=== PATIENT | male | born 1980 | race Caucasian/White ===

== ENCOUNTER 2020-09-22 17:15 | Emergency (ER) | payer BC, SELFPAY ==
[2020-09-22 17:17] VITALS: BP 124/81; PULSE 75; RESP 16; TEMP 36.8; O2SAT 97; BMI 27.8
--- NOTE | 2020-09-22 17:21 | HMH.EDGENADL ---
ED Disposition Clinical Impression: Musculoskeletal chest pain Disposition: Home, Self-Care Condition on Discharge: Good Instructions: DI for Atypical Chest Pain Additional Instructions: Ibuprofen for pain. Off work for 2 days. Additional instructions for CHEST PAIN: See your physician as soon as possible for further evaluation. Return immediately if worsening chest pain, vomiting, shortness of breath, fever, coughing of blood. Prescriptions: Ibuprofen [Ibuprofen 800mg Tablet] 800 mg PO Q8HP PRN #15 tab PRN Reason: Moderate Pain Transmission Status: Received by [facility] #[id number] Referrals: Florinda Jin MD [Primary Care Provider] - Forms: Work/School Release - Critical Care Critical Care Time: No Attestation: On , the high probability of a clinically significant, sudden or life threatening deterioration of the following system(s) required my full and direct attention, intervention and personal management. The time I documented below is in addition to time spent performing reported procedures but includes the following listed in this critical care notation. Medical Decision Making - Frank Inquiry Pt receiving controlled substance: No Vital Signs: 09/22/20 17:17 09/22/20 17:30 09/22/20 18:00 Temperature 98.3 F Temperature Source Oral Pulse Rate 73 69 Pulse Rate [Right] 75 Respiratory Rate 16 17 12 Blood Pressure 122/83 120/83 Blood Pressure [Right Arm] 124/81 Blood Pressure Mean 90 91 Blood Pressure Mean [Right Arm] 95 Blood Pressure Source Blood Pressure Position 02 Sat by Pulse Oximetry 97 96 95 Oxygen Delivery Method Room Air 09/22/20 18:30 09/22/20 18:54 Temperature 98.3 F Temperature Source Oral Pulse Rate 62 62 Pulse Rate [Right] Respiratory Rate 17 17 Blood Pressure 114/88 114/88 Blood Pressure [Right Arm] Blood Pressure Mean 93 Blood Pressure Mean [Right Arm] Blood Pressure Source Automatic Cuff Blood Pressure Position Sitting 02 Sat by Pulse Oximetry 97 Oxygen Delivery Method Room Air - Lab Data Lab Results 09/22/20 17:24: Sodium 142, Potassium 4.3, Chloride 106, Carbon Dioxide 28, Anion Gap 12.3, BUN 17, Creatinine 0.90, Estimated Creat Clear 143, Estimated GFR 94, Est GFR ( Amer) 114, Glucose 99, Calcium 9.1, Total Bilirubin 0.4, AST 28, ALT 28, Alkaline Phosphatase 58, Troponin I < 0.01, Total Protein 7.3, Albumin 4.5, Globulin 2.8, Albumin/Globulin Ratio 1.6 09/22/20 17:24: WBC 4.2 L, RBC 4.88, Hgb 14.2, Hct 41.2 L, MCV 84.4, MCH 29.1, MCHC 34.5, RDW 13.4, Plt Count 190, MPV 7.4, Neut % (Auto) 54.7, Lymph % (Auto) 36.0, Falls % (Auto) 5.7, Eos % (Auto) 2.9, Baso % (Auto) 0.7, Neut # (Auto) 2.3, Lymph # (Auto) 1.5, Falls # (Auto) 0.2, Eos # (Auto) 0.1, Baso # (Auto) 0.0 Result diagrams: 09/22/20 17:24 09/22/20 17:24 Orders (Tests/Meds): ED MEDICATIONS Discontinued Medications Generic Name Dose Route Start Last Admin Trade Name Freq PRN Reason Stop Dose Admin Ketorolac Tromethamine 30 mg 09/22/20 18:43 Ketorolac 30mg/Ml Vial IV 09/22/20 18:44 ONCE ONE - Radiology Data #1 Image(s): Chest Image Reviewed: Yes I reviewed the patient's radiology image, Yes I have reviewed radiologist's interpretation PROCEDURE INFORMATION: Exam: XR Chest Exam date and time: 09/22/2020 5:33 PM Age: 39 years old Clinical indication: Left-sided; Patient HX: Left sided chest pain going down left arm , no SX, PT just stopping smoking 1 week ago; Additional info: Cp TECHNIQUE: Imaging protocol: XR of the chest. Views: 1 view. COMPARISON: No relevant prior studies available. FINDINGS: Lungs: Unremarkable. No consolidation. Pleural spaces: Unremarkable. No pleural effusion. No pneumothorax. Heart/Mediastinum: Unremarkable. No cardiomegaly. Bones/joints: Unremarkable. IMPRESSION: No acute findings. - EC
[2020-09-22 17:30] VITALS: BP 122/83; PULSE 73; RESP 17; O2SAT 96
--- NOTE | 2020-09-22 17:33 | XR_ITS ---
PROCEDURE INFORMATION: Exam: XR Chest Exam date and time: 09/22/2020 5:33 PM Age: 39 years old Clinical indication: Left-sided; Patient HX: Left sided chest pain going down left arm , no SX, PT just stopping smoking 1 week ago; Additional info: Cp TECHNIQUE: Imaging protocol: XR of the chest. Views: 1 view. COMPARISON: No relevant prior studies available. FINDINGS: Lungs: Unremarkable. No consolidation. Pleural spaces: Unremarkable. No pleural effusion. No pneumothorax. Heart/Mediastinum: Unremarkable. No cardiomegaly. Bones/joints: Unremarkable. IMPRESSION: No acute findings.
--- NOTE | 2020-09-22 17:33 | ECG_ITS ---
APPROVED REPORT Exam: Resting ECG HR:63 bpm ECG Measurements Heart Rate 63 AXES ID 158 P 40 QRSd 102 QRS 22 QT 404 T 30 QTc 413 Conclusion Normal sinus rhythm Normal ECG Electronically signed by : Sy Frausto, 09/23/2020 13:47:54
[2020-09-22 17:43] LABS: Alanine Aminotransferase 28 U/L (12-78); Albumin Level 4.5 g/dl (3.5-5.0); Albumin/Globulin Ratio 1.6 (1.1-1.8); Alkaline Phosphatase 58 U/L (38-126); Anion Gap 12.3 mEq/L (5-15); Aspartate Amino Transferase 28 U/L (17-59); Bilirubin,Total 0.4 mg/dl (0.2-1.3); Blood Urea Nitrogen 17 mg/dl (9-20); Calcium 9.1 mg/dl (8.4-10.2); Carbon Dioxide 28 mmol/L (22.0-30.0); Chloride 106 mmol/L (98-107); Creatinine Clearance Estimated 143 mL/min (50-200); Estimated Glomerular Filt Rate 94 ml/min (>60); GFR (African American) 114 ML/MIN (>60); Globulin 2.8 g/dL (1.3-3.2); Glucose 99 mg/dl (74-100); Potassium 4.3 mmoL/L (3.5-5.1); Sodium 142 mmol/L (136-145); Total Protein,Serum 7.3 g/dl (6.3-8.2)
[2020-09-22 17:58] LABS: Troponin I < 0.01 ng/ml (0.00-0.034)
[2020-09-22 18:00] VITALS: BP 120/83; PULSE 69; RESP 12; O2SAT 95
[2020-09-22 18:11] LABS: Basophils % 0.7 % (0.1-2.0); Eosinophils # 0.1 K/mm3 (0.0-0.4); Eosinophils % 2.9 % (0.1-12.0); Hematocrit 41.2 % (42.0-52.0); Hemoglobin 14.2 g/dL (14.1-18.0); Lymphocytes # 1.5 K/mm3 (0.7-4.5); Mean Corpuscular HGB Conc 34.5 g/dL (31.8-35.4); Mean Corpuscular Hemoglobin 29.1 pg (27.0-31.2); Mean Corpuscular Volume 84.4 fl (80-94); Mean Platelet Volume 7.4 fl (7.4-10.4); Monocytes # 0.2 K/mm3 (0.1-1.0); Monocytes % 5.7 % (1.7-9.3); Neutrophils # 2.3 K/mm3 (1.8-7.8); Neutrophils % 54.7 % (37.0-80.0); Platelet Count 190 K/mm3 (142-424); Red Blood Count 4.88 M/mm3 (4.60-6.20); Red Cell Distribution Width 13.4 % (11.5-17.5); White Blood Count 4.2 K/mm3 (4.8-10.8)
[2020-09-22 18:30] VITALS: BP 114/88; PULSE 62; RESP 17; O2SAT 97
[2020-09-22 18:54] VITALS: BP 114/88; PULSE 62; RESP 17; TEMP 36.8; O2SAT 97
== END 2020-09-22 18:56 | disposition home or self-care (01) ==
PROVIDERS: Emergency Provider Emergency Medicine; PCP Family Medicine
DX: R07.89 Other chest pain (principal); F17.290 Nicotine dependence, other tobacco product, uncomplicated
CPT/HCPCS: 71045; 80053; 84484; 85025; 93005; 96374; 99282; 99283

== ENCOUNTER 2020-11-12 13:14 | Emergency (ER) | payer BC, SELFPAY ==
[2020-11-12 15:30] VITALS: BP 128/76; PULSE 91; RESP 21; TEMP 37; O2SAT 98; BMI 29.7
--- NOTE | 2020-11-12 16:11 | HMH.EDUTC ---
[facility] [place] Clinical Impression: Sinusitis Qualifiers: Sinusitis location: unspecified location Chronicity: unspecified Qualified Code(s): J32.9 - Chronic sinusitis, unspecified Disposition: Home, Self-Care Condition on Discharge: Good Instructions: Sinusitis, DI for Sinusitis, Methylprednisolone, DI for COVID-19 (Suspected or Confirmed ), Preventing the Spread of Coronavirus Discharge Instructions Additional Instructions: *Monitor Temp, Over the counter Motrin or Tylenol as directed/as needed Tylenol every 4 hours and Motrin every 6 hours (as long as your family doctor has told you that you can take it) for fever or pa-in. and straight to ER if unable to lower temp less than 101.0 after medication given *Warm salt water gargles may help to soothe the throat *Throat Lozenges *Warm fluids like tea with honey may help to soothe the throat *Sleep elevated *Humidifier/Vaporizer Your throat swab was sent for culture. Those results are typically sent to your primary care. Be sure to follow up in 2-3 days with your family doctor/primary care physician if no improvement so they can review those result and treat if necessary. If you don?t have a primary care doctor, I recommend you get one but in the mean time, you will have to return to a walk in clinic Follow up IMMEDIATELY for new or worsening symptoms or no Noticeable improvement over the next 48-72 hours. 911 for difficulty breathing or swallowing You were tested for today for COVID19 your test result should be back in the next 24-48 hours, [facility] to see if your test results are back in the next 48 it may say detected that means your result is positive.You was given handout instructions on how log on and see your results. If you do not have internet access you may call the [facility] for your results [phone] You was given a handout with instructions for Self Quarantine and Self isolation for while you wait on test results and what to do if they are positive If you are positive the Health Dept will be contacting you also Make sure to take your Vitamins Vit. C Vit D and Zinc if you can take them Prescriptions: methylPREDNISolone [Medrol 4mg tab] 4 mg PO DIRECTED #21 tab Transmission Status: Pending to [facility] # guaiFENesin [Mucinex 600mg tablet] 1 - 2 tab PO BID #20 tab Transmission Status: Pending to [facility] # Azithromycin [Z-Davy 250mg Tab] 250 mg PO DIRECTED #6 tab Transmission Status: Pending to [facility] # Referrals: Florinda Jin MD [Primary Care Provider] - As needed Forms: Work/School Release Time of Disposition: 16:15 Medical Decision Making - Frank Inquiry Pt receiving controlled substance: No Frank was queried for this patient: No Vital Signs: 11/12/20 15:30 Temperature 98.6 F Temperature Source Oral Pulse Rate [Right Brachial] 91 H Respiratory Rate 21 Blood Pressure [Right Arm] 128/76 Blood Pressure Mean [Right Arm] 93 Blood Pressure Source [Right Arm] Automatic Cuff Blood Pressure Position [Right Arm] Sitting 02 Sat by Pulse Oximetry 98 Oxygen Delivery Method Room Air - Lab Data Lab results reviewed: Yes: I reviewed the patient's lab results. Orders (Tests/Meds): ORDERS Category Date Time Status Covid-19 Nasal PCR ([facility]) Routine Lab 11/12/20 15:52 Ordered [facility] [place] HPI - General Stated complaint: Sore throat; cough; headache Time Seen by Provider: 11/12/20 16:11 Mode of Arrival: Ambulatory Source of Information: Patient Limitations: No Limitations Description of Symptoms (Recalled from Triage Doc. by RN): PATIENT C/O FEVER, COUGH, AND HEADACHE X 3 DAYS HEENT Symptoms (Recalled from RN notes): Yes Resp Symptoms (Recalled from RN notes): No Skin Symptoms (Recalled from RN notes): No MS Symptoms (Recalled from RN notes): No Functional Status (Recalled from RN notes): WNL - History of Present Illness Provider Complaint: Patient states that he is not rosita
[2020-11-12 16:17] VITALS: BP 128/76; PULSE 91; RESP 21; TEMP 37; O2SAT 98
[2020-11-12 22:01] LABS: UTC Strep Screen (Rapid) Negative (Negative)
--- NOTE | 2020-11-13 12:11 | PC.NURSE ---
LEft voicemail for pt
--- NOTE | 2020-11-13 13:06 | PC.NURSE ---
Spoke with pt about results
== END 2020-11-12 16:20 | disposition home or self-care (01) ==
PROVIDERS: Emergency Provider Nurse Practitioner; PCP Family Medicine
DX: U07.1 COVID-19 (principal); J32.9 Chronic sinusitis, unspecified
CPT/HCPCS: 87880; 99202; G0463; U0003

== ENCOUNTER 2020-11-19 15:44 | Emergency (ER) | payer BC, SELFPAY ==
[2020-11-19 15:47] VITALS: BP 109/76; PULSE 102; RESP 16; TEMP 36.8; O2SAT 96; BMI 28.5
--- NOTE | 2020-11-19 16:07 | HMH.EDSOB ---
ED Disposition Clinical Impression: Bronchitis due to 2019 novel coronavirus Disposition: Home, Self-Care Condition on Discharge: Good Additional Instructions: Take [id number] ibuprofen and/or Tylenol for your symptoms. You may also use analgesic throat sprays for your sore throat. Return to the emergency department if you feel severe shortness of breath or worse in any way. Follow-up with your primary care doctor as needed. Self isolate and avoid contact with others in order to prevent spreading of your COVID-19 infection. Referrals: Florinda Jin MD [Primary Care Provider] - As needed - Critical Care Critical Care Time: No Attestation: On 11/19/20, the high probability of a clinically significant, sudden or life threatening deterioration of the following system(s) required my full and direct attention, intervention and personal management. The time I documented below is in addition to time spent performing reported procedures but includes the following listed in this critical care notation. Medical Decision Making - Medical Records Medical records reviewed: Yes: I reviewed the patient's medical records. - Frank Inquiry Pt receiving controlled substance: No Vital Signs: 11/19/20 15:47 11/19/20 16:44 Temperature 98.3 F 98.3 F Temperature Source Oral Oral Pulse Rate 96 H Pulse Rate [Right Radial] 102 H Respiratory Rate 16 16 Blood Pressure 117/80 Blood Pressure [Right Arm] 109/76 L Blood Pressure Mean [Right Arm] 87 Blood Pressure Source Automatic Cuff Blood Pressure Source [Right Arm] Automatic Cuff Blood Pressure Position Sitting Blood Pressure Position [Right Arm] Sitting 02 Sat by Pulse Oximetry 96 Oxygen Delivery Method Room Air Room Air Orders (Tests/Meds): ORDERS Category Date Time Status XR chest portable Stat Exams 11/19/20 16:12 Taken - Radiology Data #1 Image(s): Chest Image Reviewed: Yes I reviewed the patient's radiology image Preliminary Findings: Normal/NAD Medical Decision Narrative: The patient presents to the emergency department with a known history of COVID-19. He states that he is coughing and has a sore throat. The patient's vital signs are stable. His oxygen saturations on room air are in the mid to upper 90s. His chest exam is normal. A radiograph of the chest has been ordered to be used as a baseline should the patient worsen and return to the emergency department. The patient does not meet admission criteria at this time. He will be discharged in stable condition with instructions to take [id number] Tylenol and ibuprofen and throat spray. Resp/SOB HPI - General Chief Complaint: Shortness of Breath/Dyspnea Stated Complaint: Covid#,Sore throat,cough congestion Time Seen by Provider: 11/19/20 16:08 Mode of Arrival: Ambulatory Source of Information: Patient Limitations: No Limitations Description of Symptoms (Recalled from ER Triage Doc. by RN): Pt states that he tested positive for covid last thursday, a week ago today. Pt c/o worsening symptoms, including cough and pain with deep breaths - History of Present Illness MD Complaint: cough Onset (ago): day(s) - Related Data Home Medications Medication Instructions Recorded Confirmed Cetirizine HCl [Zyrtec] 10 mg PO DAILY 10/09/18 03/12/19 Previous Rx's Medication Instructions Recorded Albuterol Sulfate [Albuterol HFA 2 puffs IH Q4H 3 Days #1 inh 03/12/19 Inhaler] levoFLOXacin [Levaquin 500mg 500 mg PO DAILY #7 tab 03/12/19 tab] predniSONE [Prednisone 20mg 20 mg PO DAILY 5 Days #5 tab 03/12/19 Tab] Ibuprofen [Ibuprofen 800mg 800 mg PO Q8HP PRN #15 tab 09/22/20 Tablet] Azithromycin [Z-Davy 250mg Tab] 250 mg PO DIRECTED #6 tab 11/12/20 guaiFENesin [Mucinex 600mg tablet] 1 - 2 tab PO BID #20 tab 11/12/20 methylPREDNISolone [Medrol 4mg 4 mg PO DIRECTED #21 tab 11/12/20 tab] Allergies Allergy/AdvReac Type Severity Reaction Statu
--- NOTE | 2020-11-19 16:12 | XR_ITS ---
PROCEDURE INFORMATION: Exam: XR Chest Exam date and time: 11/19/2020 4:12 PM Age: 39 years old Clinical indication: Cough and dyspnea; Cough with hemorrhage; Patient HX: Dyspnea, covid+; Additional info: Dyspnea, covid+ TECHNIQUE: Imaging protocol: XR of the chest. Views: 1 view. COMPARISON: CR XR CHEST PORTABLE 09/22/2020 5:45 PM FINDINGS: Lungs: Mild linear opacities in the left base. Pleural spaces: Unremarkable. No pleural effusion. No pneumothorax. Heart/Mediastinum: Unremarkable. No cardiomegaly. Bones/joints: Unremarkable. IMPRESSION: Mild linear opacities in the left base most likely reflect atelectasis.
[2020-11-19 16:44] VITALS: BP 117/80; PULSE 96; RESP 16; TEMP 36.8; O2SAT 98
== END 2020-11-19 16:49 | disposition home or self-care (01) ==
PROVIDERS: Emergency Provider Emergency Medicine; PCP Family Medicine
DX: J20.9 Acute bronchitis, unspecified (principal); U07.1 COVID-19
CPT/HCPCS: 71045; 99282

== ENCOUNTER 2021-08-04 13:55 | Emergency (ER) | payer BC, SELFPAY ==
[2021-08-04 14:28] VITALS: BP 135/89; PULSE 95; RESP 18; TEMP 36.6; O2SAT 98; BMI 29.6
[2021-08-04 14:31] VITALS: BP 135/89; PULSE 95; RESP 18; TEMP 36.6
[2021-08-04 15:39] LABS: Adenovirus,PCR Not Detected (NotDetected); Coronavirus 229E Not Detected (NotDetected); Coronavirus NL63 Not Detected (NotDetected); Coronavirus OC43 Not Detected (NotDetected); Coronovirus HKU1,PCR Not Detected (NotDetected); Human Metapneumovirus Not Detected (NotDetected); Influenza A, PCR Not Detected (NotDetected); Influenza AH1, 2009 Not Detected (NotDetected); Influenza AH1, PCR Not Detected (NotDetected); Influenza AH3,PCR Not Detected (NotDetected); Influenza B, PCR Not Detected (NotDetected); Parainfluenza 1, PCR Not Detected (NotDetected); Parainfluenza 2, PCR Not Detected (NotDetected); Parainfluenza 3, PCR Not Detected (NotDetected); Parainfluenza 4, PCR Not Detected (NotDetected); Rhinovirus/Enterovirus Not Detected (NotDetected)
[2021-08-04 15:41] LABS: Bordetella Pertussis Not Detected (NotDetected); Chlamydophila Pneumoniae, PCR Not Detected (NotDetected); Mycoplasma Pneumoniae, PCR Not Detected (NotDetected)
[2021-08-04 19:54] LABS: Coronavirus 19, PCR Not Detected (NotDetected); Respiratory Syncytial Virus Not Detected (NotDetected)
== END 2021-08-04 14:33 | disposition home or self-care (01) ==
PROVIDERS: Emergency Provider Nurse Practitioner Family
DX: Z20.822 Contact with and (suspected) exposure to COVID-19 (principal)
CPT/HCPCS: 87581; 87632; 87798; 99211; C9803; G0463; U0003; U0005

== ENCOUNTER 2021-09-11 12:59 | Emergency (ER) | payer BC, SELFPAY ==
[2021-09-11 13:10] VITALS: BP 152/99; PULSE 107; RESP 18; TEMP 36.9; O2SAT 98; BMI 27.6
--- NOTE | 2021-09-11 13:23 | HMH.EDUTC ---
[facility] [place] Clinical Impression: Otitis media Qualifiers: Otitis media type: unspecified Laterality: left Qualified Code(s): H66.92 - Otitis media, unspecified, left ear Disposition: Home, Self-Care Condition on Discharge: Good Instructions: Middle Ear Infection, Amoxicillin Additional Instructions: *Monitor Temp, Over the counter Motrin or Tylenol as directed/as needed Tylenol every 4 hours and Motrin every 6 hours (as long as your family doctor has told you that you can take it) for fever or pain. and straight to ER if unable to lower temp less than 101.0 after medication given *Warm salt water gargles may help to soothe the throat *Throat Lozenges *Warm fluids like tea with honey may help to soothe the throat *Sleep elevated *Humidifier/Vaporizer Take medication as prescribed Follow up IMMEDIATELY for new or worsening symptoms or no Noticeable improvement over the next 48-72 hours. 911 for difficulty breathing or swallowing Prescriptions: Amoxicillin [Amoxicillin 875MG Tab] 875 mg PO Q12H #20 tab Transmission Status: Pending to [facility] #[id number] Referrals: Florinda Jin MD [Primary Care Provider] - As needed Time of Disposition: 13:27 Medical Decision Making - Frank Inquiry Pt receiving controlled substance: No Frank was queried for this patient: No Vital Signs: 09/11/21 13:10 Temperature 98.4 F Temperature Source Oral Pulse Rate [Right Brachial] 107 H Respiratory Rate 18 Blood Pressure [Right Arm] 152/99 H Blood Pressure Mean [Right Arm] 116 Blood Pressure Source [Right Arm] Automatic Cuff Blood Pressure Position [Right Arm] Sitting 02 Sat by Pulse Oximetry 98 Oxygen Delivery Method Room Air [facility] [place] - General Stated complaint: ear pain, sore throat, sinus pressure Time Seen by Provider: 09/11/21 13:23 Mode of Arrival: Ambulatory Source of Information: Patient Limitations: No Limitations Description of Symptoms (Recalled from Triage Doc. by RN): PATIENT C/O BILATERAL EAR PAIN, SORE THROAT, CONGESTION, AND RUNNY NOSE HEENT Symptoms (Recalled from RN notes): Yes Resp Symptoms (Recalled from RN notes): No Skin Symptoms (Recalled from RN notes): No MS Symptoms (Recalled from RN notes): No Functional Status (Recalled from RN notes): WNL - History of Present Illness Provider Complaint: Patient states that he thinks he may have an ear infection States that he has been having pain in his left ear for over a week and now having pain in his right ear also States that he has had some sinus congestion also and feels like it is draining in the back of his throat States that he had jaw reconstruction surgery about a month ago but no problems from that - Related Data Home Medications Medication Instructions Recorded Confirmed Cetirizine HCl [Zyrtec] 10 mg PO DAILY 10/09/18 03/12/19 Previous Rx's Medication Instructions Recorded Albuterol Sulfate [Albuterol HFA 2 puffs IH Q4H 3 Days #1 inh 03/12/19 Inhaler] levoFLOXacin [Levaquin 500mg 500 mg PO DAILY #7 tab 03/12/19 tab] predniSONE [Prednisone 20mg 20 mg PO DAILY 5 Days #5 tab 03/12/19 Tab] Ibuprofen [Ibuprofen 800mg 800 mg PO Q8HP PRN #15 tab 09/22/20 Tablet] Azithromycin [Z-Davy 250mg Tab] 250 mg PO DIRECTED #6 tab 11/12/20 guaiFENesin [Mucinex 600mg tablet] 1 - 2 tab PO BID #20 tab 11/12/20 methylPREDNISolone [Medrol 4mg 4 mg PO DIRECTED #21 tab 11/12/20 tab] Amoxicillin [Amoxicillin 875MG 875 mg PO Q12H #20 tab 09/11/21 Tab] Allergies Allergy/AdvReac Type Severity Reaction Status Date / Time No Known Allergies Allergy Verified 08/08/18 17:12 - Worker's Comp Is this a Worker's Comp case?: No [facility] History - Hepatitis A Screen Attestation statement:: This patient has been screened for Hepatitis A risk factors. I have reviewed the patient's past medical history: Yes Medical History: Reports:: Cancer - Social History Smoking Status: Never smoker
[2021-09-11 13:33] VITALS: BP 152/99; PULSE 107; RESP 18; TEMP 36.9; O2SAT 98
== END 2021-09-11 13:36 | disposition home or self-care (01) ==
PROVIDERS: Emergency Provider Nurse Practitioner; PCP Family Medicine
DX: H66.92 Otitis media, unspecified, left ear (principal)
CPT/HCPCS: 99212; G0463

== ENCOUNTER 2022-01-13 10:31 | Emergency (ER) | payer BC, SELFPAY ==
[2022-01-13 11:50] VITALS: BP 125/75; PULSE 63; RESP 18; TEMP 37.1; O2SAT 98; BMI 28.5
--- NOTE | 2022-01-13 12:03 | EXP.UTC ---
Discharge Plan Disposition Patient Disposition: Home, Self-Care Condition: Good Prescriptions Prescriptions: New azithromycin [Zithromax] 250 mg tablet 250 mg PO UD DOSE PK Qty: 6 0RF Rx Instructions: Take two (2) tablets today, then one (1) tablet days #2 thru #5 benzonatate [benzonatate] 100 mg capsule 100 mg PO TIDP PRN (Reason: Cough) Qty: 30 0RF methylprednisolone 4 mg Tablets,Dose Pack 4 mg PO DIRECTED Qty: 21 0RF No Action cetirizine 10 MG tablet 10 mg PO DAILY ibuprofen 800 MG tablet 800 mg PO Q8HP PRN (Reason: Moderate Pain) Qty: 15 0RF levofloxacin 500 MG tablet 500 mg PO DAILY Qty: 7 0RF prednisone 20 MG tablet 20 mg PO DAILY 5 Days Qty: 5 0RF albuterol sulfate 18 GM HFA aerosol inhaler 2 puffs IH Q4H 3 Days Qty: 1 0RF azithromycin 250 MG tablet 250 mg PO DIRECTED Qty: 6 0RF Rx Instructions: Take two (2) tablets on day #1, then one (1) tablet day #2 thru #5 methylprednisolone 4 MG tablet 4 mg PO DIRECTED Qty: 21 0RF Rx Instructions: Take as directed on package instructions guaifenesin 600 MG tablet extended release 12hr 1 - 2 tab PO BID Qty: 20 0RF amoxicillin 875 MG tablet 875 mg PO Q12H Qty: 20 0RF Referrals Follow up/Referrals: Florinda Jin MD [Primary Care Provider] - See instructions Activity Restrictions/Add. Instructions Additional Instructions/Restrictions: Drink plenty of fluids. Take tylenol or ibuprofen for pain or fever. Take the medications as directed. Follow up with your regular doctor. GO TO THE ER FOR ANY WORSENING SYMPTOMS Clinical Impressions Clinical Impression: Acute bronchitis Stand Alone Forms Stand Alone Forms: Work/School Release Instructions Patient Instructions: DI for Acute Bronchitis Discharge ED Provider: Syd Miranda [facility] General Stated complaint: Cough, Headache Time Seen by Provider: 01/13/22 12:02 History of Present Illness Provider Complaint: He states that for the past 5 days he has had chest congestion, cough and sinus congestion. He denies fever, chills, and body aches. Related Data Home Medications Medication Instructions Recorded Confirmed cetirizine 10 mg tablet 10 mg PO DAILY ALLERGIES 10/09/18 03/12/19 Previous Rx's Medication Instructions Recorded albuterol sulfate 90 mcg/actuation 2 puffs IH Q4H 3 days #1 inh 03/12/19 aerosol inhaler levofloxacin 500 mg tablet 500 mg PO DAILY #7 tabs 03/12/19 prednisone 20 mg tablet 20 mg PO DAILY 5 days #5 tabs 03/12/19 ibuprofen 800 mg tablet 800 mg PO Q8HP PRN Moderate Pain 09/22/20 #15 tabs azithromycin 250 mg tablet 250 mg PO DIRECTED #6 tabs 11/12/20 guaifenesin 600 mg tablet, 1 - 2 tab PO BID Congestion/chest 11/12/20 extended release 12 hr congesti #20 tabs methylprednisolone 4 mg tablet 4 mg PO DIRECTED #21 tabs 11/12/20 amoxicillin 875 mg tablet 875 mg PO Q12H #20 tabs 09/11/21 azithromycin 250 mg tablet 250 mg PO UD DOSE PK #6 tabs 01/13/22 (Zithromax) benzonatate 100 mg capsule 100 mg PO TIDP PRN Cough #30 caps 01/13/22 methylprednisolone 4 mg tablets in 4 mg PO DIRECTED #21 tabs 01/13/22 a dose pack Allergies Allergy/AdvReac Type Severity Reaction Status Date / Time No Known Allergies Allergy Verified 08/08/18 17:12 [facility] Medical History Cancer Kidney stone Social History Smoking Status: Never smoker alcohol intake: never current occupational status: other Travel in the last 8 weeks: None ROS Obtained: Yes All systems reviewed & no additional complaints except as documented Constitutional Constitutional: Denies chills and Denies fever(s) Eyes Eyes: Denies eye discharge ENT Ears, Nose, Mouth, and Throat: Reports as per HPI Cardiovascular Cardiovascular: Denies chest pain Respiratory Respiratory: Denies shortness of
[2022-01-13 12:21] VITALS: BP 125/75; PULSE 63; RESP 18; TEMP 37.1; O2SAT 98
== END 2022-01-13 12:24 | disposition home or self-care (01) ==
PROVIDERS: Emergency Provider Nurse Practitioner Family; PCP Family Medicine
DX: R09.81 Nasal congestion (principal); R11.0 Nausea; R05.9 Cough, unspecified; R51.9 Headache, unspecified; Z79.1 Long term (current) use of non-steroidal anti-inflammatories (NSAID); Z79.51 Long term (current) use of inhaled steroids; Z79.52 Long term (current) use of systemic steroids; Z79.899 Other long term (current) drug therapy; Z87.442 Personal history of urinary calculi; Z85.9 Personal history of malignant neoplasm, unspecified
CPT/HCPCS: 99213; G0463

== ENCOUNTER 2022-01-27 06:35 | Emergency (ER) | payer BC, SELFPAY ==
[2022-01-27] VITALS (8 sets, daily range): BP systolic 118–140; BP diastolic 74–90; PULSE 78–87; RESP 16–20; TEMP 36.8; O2SAT 88–99; BMI 27.8
[2022-01-27 07:13] LABS: Coronavirus 19, PCR Not Detected (NotDetected); Influenza A, PCR Not Detected (NotDetected); Influenza B, PCR Not Detected (NotDetected)
--- NOTE | 2022-01-27 08:36 | HMH.EDGENADL ---
Discharge Plan Disposition Patient Disposition: Home, Self-Care Condition: Good Prescriptions Prescriptions: New doxycycline hyclate 100 mg capsule 100 mg PO BID 14 Days Qty: 28 0RF No Action cetirizine 10 MG tablet 10 mg PO DAILY ibuprofen 800 MG tablet 800 mg PO Q8HP PRN (Reason: Moderate Pain) Qty: 15 0RF azithromycin [Zithromax] 250 mg tablet 250 mg PO UD DOSE PK Qty: 6 0RF Rx Instructions: Take two (2) tablets today, then one (1) tablet days #2 thru #5 benzonatate [benzonatate] 100 mg capsule 100 mg PO TIDP PRN (Reason: Cough) Qty: 30 0RF methylprednisolone 4 mg Tablets,Dose Pack 4 mg PO DIRECTED Qty: 21 0RF levofloxacin 500 MG tablet 500 mg PO DAILY Qty: 7 0RF prednisone 20 MG tablet 20 mg PO DAILY 5 Days Qty: 5 0RF albuterol sulfate 18 GM HFA aerosol inhaler 2 puffs IH Q4H 3 Days Qty: 1 0RF azithromycin 250 MG tablet 250 mg PO DIRECTED Qty: 6 0RF Rx Instructions: Take two (2) tablets on day #1, then one (1) tablet day #2 thru #5 methylprednisolone 4 MG tablet 4 mg PO DIRECTED Qty: 21 0RF Rx Instructions: Take as directed on package instructions guaifenesin 600 MG tablet extended release 12hr 1 - 2 tab PO BID Qty: 20 0RF amoxicillin 875 MG tablet 875 mg PO Q12H Qty: 20 0RF Referrals Follow up/Referrals: Florinda Jin MD [Primary Care Provider] - See instructions Activity Restrictions/Add. Instructions Additional Instructions/Restrictions: Follow-up promptly with your ear nose and throat doctor. Clinical Impressions Clinical Impression: Acute bronchitis Stand Alone Forms Stand Alone Forms: Work/School Release Discharge ED Provider: Edward Keller General Adult HPI General Chief complaint: Ear Stated complaint: Sore throat, ear pain Time Seen by Provider: 01/27/22 09:00 Mode of Arrival: Ambulatory Source of Information: Patient Limitations: No Limitations Description of Symptoms (Recalled from ER Triage Doc. by RN): pt c/o right ear pain that goes into his throat. the pt states he has a productive cough with green sputum and states that he has had flu exposure History of Present Illness HPI narrative: Patient presents complaining of pain to the right mandibular and posterior auricular area as well as the right ear that began this past Thursday. He describes the pain as moderate and without exacerbating alleviating factors. 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 He denies fever he has had a mild sore throat. Related Data Home Medications Medication Instructions Recorded Confirmed cetirizine 10 mg tablet 10 mg PO DAILY ALLERGIES 10/09/18 03/12/19 Previous Rx's Medication Instructions Recorded albuterol sulfate 90 mcg/actuation 2 puffs IH Q4H 3 days #1 inh 03/12/19 aerosol inhaler levofloxacin 500 mg tablet 500 mg PO DAILY #7 tabs 03/12/19 prednisone 20 mg tablet 20 mg PO DAILY 5 days #5 tabs 03/12/19 ibuprofen 800 mg tablet 800 mg PO Q8HP PRN Moderate Pain 09/22/20 #15 tabs azithromycin 250 mg tablet 250 mg PO DIRECTED #6 tabs 11/12/20 guaifenesin 600 mg tablet, 1 - 2 tab PO BID Congestion/chest 11/12/20 extended release 12 hr congesti #20 tabs methylprednisolone 4 mg tablet 4 mg PO DIRECTED #21 tabs 11/12/20 amoxicillin 875 mg tablet 875 mg PO Q12H #20 tabs 09/11/21 azithromycin 250 mg tablet 250 mg PO UD DOSE PK #6 tabs 01/13/22 (Zithromax) benzonatate 100 mg capsule 100 mg PO TIDP PRN Cough #30 caps 01/13/22 methylprednisolone 4 mg tablets in 4 mg PO DIRECTED #21 tabs 01/13/22 a dose pack doxycycline hyclate 100 mg capsule 100 mg PO BID 14 days #28 caps 01/27/22 Allergies Allergy/AdvReac Type Severity Reaction Status Date / Time No Known Allergies Allergy Verified 08/08/18 17:12 [facility] Medical History Cancer Kidney stone Social History Smoking Sta
--- NOTE | 2022-01-27 09:50 | PC.NURSE ---
Updated pt and daughter on POC. Provided drinks at this time. No other needs and agreeable with plan on care
[2022-01-27 09:57] LABS: Strep Scrn Group A (Rapid) Negative (Negative)
== END 2022-01-27 10:43 | disposition home or self-care (01) ==
PROVIDERS: Emergency Medicine; Emergency Provider Emergency Medicine; PCP Family Medicine
DX: J02.9 Acute pharyngitis, unspecified (principal); H92.03 Otalgia, bilateral; R05.9 Cough, unspecified; Z20.822 Contact with and (suspected) exposure to COVID-19; Z85.830 Personal history of malignant neoplasm of bone; Z87.442 Personal history of urinary calculi; Z79.1 Long term (current) use of non-steroidal anti-inflammatories (NSAID); Z79.51 Long term (current) use of inhaled steroids; Z79.52 Long term (current) use of systemic steroids; Z79.899 Other long term (current) drug therapy; Z87.891 Personal history of nicotine dependence
CPT/HCPCS: 87430; 99283; C9803; U0003; U0005

== ENCOUNTER 2023-01-15 10:50 | Emergency (ER) | payer BC, SELFPAY ==
[2023-01-15 11:15] VITALS: BP 143/88; PULSE 70; RESP 19; TEMP 36.6; O2SAT 97; BMI 28.5
--- NOTE | 2023-01-15 11:49 | EXP.UTC ---
Discharge Plan Disposition Patient Disposition: Home, Self-Care Condition: Good Prescriptions Prescriptions: New azithromycin [Zithromax Z-Davy] 250 mg tablet See Rx Instructions .ROUTE .COMPLEX 5 Days Qty: 6 0RF Rx Instructions: For 250 mg dose pack: take 500 mg today (day 1), then 250 mg for 4 days (days 2-5) benzonatate 100 mg capsule 100 mg PO TID PRN (Reason: cough) Qty: 30 0RF methylprednisolone [Medrol (Davy)] 4 mg tablets,dose pack See Rx Instructions .Route .COMPLEX 6 Days Qty: 21 0RF Rx Instructions: taper pack; No Action cetirizine [Zyrtec] 10 mg Tablet 10 mg PO DAILY Referrals Follow up/Referrals: Florinda Jin MD [Primary Care Provider] - See instructions Activity Restrictions/Add. Instructions Additional Instructions/Restrictions: Start antibiotic today. Be sure to complete entire prescription even if feeling better Monitor temp. Tylenol every 4 hours as needed and / or ibuprofen every 6 hours as needed ( As long as your primary care physician has told you that it ok to take both. For fever/aches/pains ER if no less than 101 despite Tylenol or Motrin Humidifier/vaporizer or hot steamy shower *Tessalon Perles will not cause drowsiness but use at bedtime to help stop cough so that you may get some rest. *Start steroid today. Helps with inflammation therefore, cough and wheezing. Follow directions on the package. Reviewed side effects. Patient reports taking them before. Follow up IMMEDIATELY for new or worsening of symptoms OR no noticeable improvement over the next 48-72 hours. 911 immediately for any life threatening symptoms such as chest pain or difficulty breathing Clinical Impressions Clinical Impression: Sinusitis Qualifiers: Sinusitis location: unspecified location Chronicity: unspecified Qualified Code(s): J32.9 - Chronic sinusitis, unspecified Stand Alone Forms Stand Alone Forms: Work/School Release Instructions Patient Instructions: DI for Sinusitis, Sinusitis Discharge ED Provider: Yaneli Kaba [facility] General Stated complaint: CONGESTION, HEADACHE Mode of Arrival: Ambulatory Source of Information: Patient Limitations: No Limitations Time Seen by Provider: 01/15/23 11:49 Description of Symptoms (Recalled from Triage Doc. by RN): PATIENT C/O HEADACHE, CONGESTION AND SORE THROAT X 2 DAYS HEENT Symptoms (Recalled from RN notes): Yes Resp Symptoms (Recalled from RN notes): No Skin Symptoms (Recalled from RN notes): No MS Symptoms (Recalled from RN notes): No Functional Status (Recalled from RN notes): WNL History of Present Illness Provider Complaint: Patient states that he has been having sinus pain and congestion for about a week but for the last couple of days it has got worse and now his throat is feeling scratchy and hurts when he coughs States that he feels the pressure behind his eyes from his sinuses Related Data Home Medications Medication Instructions Recorded Confirmed cetirizine 10 mg tablet (Zyrtec) 10 mg PO DAILY 01/15/23 01/15/23 Previous Rx's Medication Instructions Recorded azithromycin 250 mg tablet See Rx Instructions PO .COMPLEX 5 01/15/23 (Zithromax Z-Davy) days #6 tabs benzonatate 100 mg capsule 100 mg PO TID PRN cough #30 caps 01/15/23 methylprednisolone 4 mg tablets in See Rx Instructions .Route 01/15/23 a dose pack (Medrol (Davy)) .COMPLEX 6 days #21 tabs Allergies Allergy/AdvReac Type Severity Reaction Status Date / Time No Known Allergies Allergy Verified 08/08/18 17:12 Worker's Comp Is this a Worker's Comp case?: No [facility] Disclaimer: The information contained in this section may have been updated after the patient was seen, as this information can be updated by other users. Medical History Cancer Kidney stone Social History Smoking Status: F
[2023-01-15 11:55] VITALS: BP 143/88; PULSE 70; RESP 19; TEMP 36.6; O2SAT 97
== END 2023-01-15 12:00 | disposition home or self-care (01) ==
PROVIDERS: Emergency Provider Nurse Practitioner; PCP Family Medicine
DX: J01.90 Acute sinusitis, unspecified (principal); Z87.891 Personal history of nicotine dependence
CPT/HCPCS: 99212; 99214; G0463

== ENCOUNTER 2023-01-20 07:12 | Emergency (ER) | payer BC, SELFPAY ==
[2023-01-20 07:14] VITALS: BP 131/89; PULSE 81; RESP 14; TEMP 36.7; O2SAT 99; BMI 28.5
--- NOTE | 2023-01-20 07:47 | XR_ITS ---
FINAL REPORT CLINICAL HISTORY: Left ankle pain after injury FINDINGS: AP, oblique, and lateral views of the left ankle were obtained. There is no prior exam for comparison. There is no fracture or dislocation. The ankle mortise is intact. Soft tissues are normal. IMPRESSION: No acute osseous abnormality of the left ankle. Reviewed, Interpreted and Dictated by Viviana Abrams MD Transcribed by Larissa Rider Authenticated and [facility]
--- NOTE | 2023-01-20 07:47 | XR_ITS ---
FINAL REPORT CLINICAL HISTORY: Left foot pain and swelling after injury FINDINGS: AP, oblique and lateral views of the left foot were obtained. There is no prior exam for comparison. There is no acute fracture or dislocation. The joint spaces are preserved. Soft tissues are normal. IMPRESSION: No acute osseous abnormality of the left foot. Reviewed, Interpreted and Dictated by Viviana Abrams MD Transcribed by Larissa Rider Authenticated and [facility]
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
[2023-01-20 08:25] VITALS: BP 131/89; PULSE 81; RESP 14; TEMP 36.7; O2SAT 99
== END 2023-01-20 08:28 | disposition home or self-care (01) ==
PROVIDERS: Emergency Provider Student in an Organized Health Care Education/Training Program; PCP Family Medicine
DX: M25.572 Pain in left ankle and joints of left foot (principal); V29.00 Motorcycle driver injured in collision with unspecified motor vehicles in nontraffic accident; Z87.891 Personal history of nicotine dependence
CPT/HCPCS: 73610; 73630; 99283

== ENCOUNTER 2023-03-15 12:03 | Emergency (ER) | payer BC, SELFPAY ==
[2023-03-15 12:30] VITALS: BP 122/82; PULSE 98; RESP 18; TEMP 36.9; O2SAT 96; BMI 28.5
--- NOTE | 2023-03-15 12:35 | EXP.UTC ---
Discharge Plan Disposition Patient Disposition: Home, Self-Care Condition: Good Prescriptions Prescriptions: New azithromycin [Zithromax] 250 mg tablet 250 mg PO UD DOSE PK Qty: 6 0RF Rx Instructions: Take two (2) tablets today, then one (1) tablet days #2 thru #5 benzonatate [benzonatate] 100 mg capsule 100 mg PO TIDP PRN (Reason: Cough) Qty: 30 0RF methylprednisolone 4 mg Tablets,Dose Pack 4 mg PO DIRECTED 6 Days Qty: 21 0RF Rx Instructions: Take 1 pack as directed for 6 days guaifenesin [Mucinex] 600 mg tablet extended release 12hr 600 - 1,200 mg PO BIDP PRN (Reason: Congestion) Qty: 30 0RF No Action cetirizine [Zyrtec] 10 mg Tablet 10 mg PO DAILY Referrals Follow up/Referrals: Florinda Jin MD [Primary Care Provider] - See instructions Activity Restrictions/Add. Instructions Additional Instructions/Restrictions: Drink plenty of fluids. Take tylenol or ibuprofen for pain or fever. Take the medications as directed. Follow up with your regular doctor. GO TO THE ER FOR ANY WORSENING SYMPTOMS Clinical Impressions Clinical Impression: Acute bronchitis, Sinusitis Instructions Patient Instructions: Sinusitis, DI for Sinusitis Discharge ED Provider: Syd Miranda [facility] General Stated complaint: st cough congestion Time Seen by Provider: 03/15/23 12:35 History of Present Illness Provider Complaint: He states that he has had sinus and chest congestion for the past 2 weeks. He denies any fever/chills/body aches. He denies shortness of breath. Related Data Home Medications Medication Instructions Recorded Confirmed cetirizine 10 mg tablet (Zyrtec) 10 mg PO DAILY 01/15/23 03/15/23 Previous Rx's Medication Instructions Recorded azithromycin 250 mg tablet 250 mg PO UD DOSE PK #6 tabs 03/15/23 (Zithromax) benzonatate 100 mg capsule 100 mg PO TIDP PRN Cough #30 caps 03/15/23 guaifenesin 600 mg tablet, 600 - 1,200 mg PO BIDP PRN 03/15/23 extended release 12 hr (Mucinex) Congestion #30 tabs methylprednisolone 4 mg tablets in 4 mg PO DIRECTED 6 days #21 tabs 12/31/23 a dose pack Allergies Allergy/AdvReac Type Severity Reaction Status Date / Time No Known Allergies Allergy Verified 08/08/18 17:12 [facility] Disclaimer: The information contained in this section may have been updated after the patient was seen, as this information can be updated by other users. Medical History Cancer Kidney stone Social History Smoking Status: Current some day smoker tobacco type: cigarettes packs per day: 1 alcohol intake: never current occupational status: other Travel in the last 8 weeks: None ROS Obtained: Yes All systems reviewed & no additional complaints except as documented Constitutional Constitutional: Reports poor appetite Eyes Eyes: Reports system reviewed and no additional complaints, except as documented ENT Ears, Nose, Mouth, and Throat: Reports as per HPI Cardiovascular Cardiovascular: Reports system reviewed and no additional complaints, except as documented and Denies chest pain Respiratory Respiratory: Denies shortness of breath, Reports chest congestion, Reports cough, Denies stridor and Denies wheezing Gastrointestinal Gastrointestingal: Reports system reviewed and no additional complaints, except as documented; Denies abdominal pain, diarrhea or vomiting Musculoskeletal Musculoskeletal: Reports system reviewed and no additional complaints, except as documented and Denies arthralgias Integumentary/Breasts Skin/Breast: Reports system reviewed and no additional complaints, except as documented and Denies rash Neurologic Neurologic: Denies paresthesias Allergic/Immunologic Allergic/Immunologic: Denies wheezing Physical Exam General General appearance: alert and in no apparent distress Eye Eye exam: Present normal appearance, PERRL and EOMI ENT ENT exam: Present mucous membranes moist and normal external ear exam Expanded ENT Exam External ear exam: Present normal external inspection TM/Canal exam: Bilateral TM: erythema and bulging Nose exam: Absent sinus tenderness Nasal speculum exam: Bilateral: normal Mouth exam: Present normal external inspection; Absent drooling Teeth exam: Present normal inspection Throat exam: Present tonsillar erythema and tonsillomegaly Neck Neck exam: Present normal inspection, full ROM and trachea midline; Absent tenderness, lymphadenopathy or thyromegaly Chest Chest inspection: Present normal inspection and symmetric chest wall rise; Absent tenderness or rash Respiratory Respiratory exam: Present normal lung sounds bilaterally; Absent respiratory distress, wheezes, stridor or accessory muscle use Cardiovascular Cardiovascular exam: Present regular rate, normal rhythm and normal heart sounds Abdominal Exam Abdominal exam: Present soft; Absent distention, tenderness, guarding, rebound or rigidity Extremities Exam Extremities exam: Present normal inspection, full ROM and normal capillary refill; Absent tenderness or calf tenderness Back Exam Back exam: Present normal inspection and full ROM; Absent tenderness Neurological Exam Neurological exam: Present alert and oriented X3 Psychiatric Psychiatric exam: Present normal affect and normal mood Skin Skin exam: Present warm, dry, intact and normal color Lymphatic Lymphatic Findings: no adenopathy Medical Decision Making Medical Records Medical records reviewed: No I reviewed the patient's medical records. Frank Inquiry Pt receiving controlled substance: No Lab Data Lab results reviewed: Yes I reviewed the patient's lab results.
[2023-03-15 13:14] VITALS: BP 122/82; PULSE 98; RESP 18; TEMP 36.9; O2SAT 96
== END 2023-03-15 13:14 | disposition home or self-care (01) ==
PROVIDERS: Emergency Provider Nurse Practitioner Family; PCP Family Medicine
DX: J20.9 Acute bronchitis, unspecified (principal); J01.90 Acute sinusitis, unspecified; R07.0 Pain in throat; R09.81 Nasal congestion; R09.89 Other specified symptoms and signs involving the circulatory and respiratory systems; F17.210 Nicotine dependence, cigarettes, uncomplicated
CPT/HCPCS: 99212; 99214; G0463

== ENCOUNTER 2023-07-20 11:43 | Outpatient (CLI) | payer BC, SELFPAY ==
--- NOTE | 2023-07-20 11:48 | XR_ITS ---
FINAL REPORT CLINICAL HISTORY: LT FOOT PAIN PLANTAR FASCITIS states possible bone spur FINDINGS: LEFT FOOT Three views of the left foot demonstrate no acute fracture or dislocation. The visualized joint spaces are normally aligned. There is a plantar calcaneal spur. Mild hallux valgus deformity is noted. The soft tissues are unremarkable. IMPRESSION: No acute bony abnormality. Reviewed, Interpreted and Dictated by Kobe Lora III, MD Transcribed by Fatoumata Celis Authenticated and [facility]
== END 2023-07-20 23:59 | disposition home or self-care (01) ==
LOC: RAD 11:44
PROVIDERS: PCP Family Medicine; Visit Provider Nurse Practitioner
DX: M79.672 Pain in left foot (principal); M72.2 Plantar fascial fibromatosis
CPT/HCPCS: 73630

== ENCOUNTER 2023-08-29 12:45 | Emergency (ER) | payer BC, SELFPAY ==
[2023-08-29 13:10] VITALS: BP 130/91; PULSE 70; RESP 18; TEMP 36.8; O2SAT 98; BMI 29.0
--- NOTE | 2023-08-29 13:36 | EXP.UTC ---
Discharge Plan Disposition Patient Disposition: Home, Self-Care Condition: Good Prescriptions Prescriptions: New amoxicillin 875 mg tablet 875 mg PO Q12H Qty: 20 0RF dtudrcfkreoifbv-[id number]-XT [Bromfed DM] 2-30-10 mg/5 mL Syrup 5 ml PO Q6H PRN (Reason: Cough) Qty: 240 0RF prednisone 10 mg tablet 10 mg PO BID 5 Days Qty: 10 0RF No Action cetirizine [Zyrtec] 10 mg Tablet 10 mg PO DAILY Referrals Follow up/Referrals: Florinda Jin MD [Primary Care Provider] - See instructions Activity Restrictions/Add. Instructions Additional Instructions/Restrictions: Drink plenty of fluids. Take tylenol or ibuprofen for pain or fever. Take the medications as directed. Follow up with your regular doctor. GO TO THE ER FOR ANY WORSENING SYMPTOMS Clinical Impressions Clinical Impression: Otitis media Qualifiers: Otitis media type: unspecified Laterality: left Qualified Code(s): H66.92 - Otitis media, unspecified, left ear Instructions Patient Instructions: Middle Ear Infection Discharge ED Provider: Syd Miranda [facility] General Stated complaint: left ear pressure congestion Mode of Arrival: Ambulatory Source of Information: Patient Limitations: No Limitations Time Seen by Provider: 08/29/23 13:34 Description of Symptoms (Recalled from Triage Doc. by RN): Pt's symptoms are left ear pain, and congestion. HEENT Symptoms (Recalled from RN notes): Yes Resp Symptoms (Recalled from RN notes): No Skin Symptoms (Recalled from RN notes): No MS Symptoms (Recalled from RN notes): No Functional Status (Recalled from RN notes): n/a History of Present Illness Provider Complaint: He states that for the past 4 days he has had left ear pain and sinus congestion. Related Data Home Medications Medication Instructions Recorded Confirmed cetirizine 10 mg tablet (Zyrtec) 10 mg PO DAILY 01/15/23 08/29/23 Previous Rx's Medication Instructions Recorded amoxicillin 875 mg tablet 875 mg PO Q12H #20 tabs 08/29/23 ocshzgxcowtoyvp-nfumlrjqdwhklbq-MG 5 ml PO Q6H PRN Cough #240 mL 08/29/23 2 mg-30 mg-10 mg/5 mL oral syrup (Bromfed DM) prednisone 10 mg tablet 10 mg PO BID 5 days #10 tabs 08/29/23 Allergies Allergy/AdvReac Type Severity Reaction Status Date / Time No Known Allergies Allergy Verified 08/29/23 13:17 Worker's Comp Is this a Worker's Comp case?: No [facility] Disclaimer: The information contained in this section may have been updated after the patient was seen, as this information can be updated by other users. Medical History (Updated 08/29/23 @ 14:08 by Syd Miranda APRN) Kidney stone Cancer Surgical History History of mandibular surgery Social History Smoking Status: Current some day smoker tobacco type: cigarettes packs per day: 1 alcohol intake: never current occupational status: other Travel in the last 8 weeks: None ROS Obtained: Yes All systems reviewed & no additional complaints except as documented Constitutional Constitutional: Denies chills, Reports fever(s) and Reports poor appetite Eyes Eyes: Denies eye discharge ENT Ears, Nose, Mouth, and Throat: Denies ear discharge, Reports otalgia, Denies hearing loss, Denies sinus pain and Reports sore throat Cardiovascular Cardiovascular: Denies chest pain and Denies dyspnea Respiratory Respiratory: Denies chest congestion, Reports cough and Denies dyspnea Gastrointestinal Gastrointestingal: Denies abdominal pain, diarrhea, nausea or vomiting Musculoskeletal Musculoskeletal: Denies arthralgias Integumentary/Breasts Skin/Breast: Denies rash Physical Exam General General appearance: alert and in no apparent distress Head Head exam: atraumatic, normocephalic and normal inspection Eye Eye exam: Present normal appearance; Absent PERRL or EOMI ENT ENT exam: Present mucous membranes moist and normal external ear exam Expanded ENT Exam TM/Canal exam: Bilateral TM: erythema, bulging and effusion Nose exam: Absent sinus tenderness Nasal speculum exam: Bilateral: normal Mouth exam: Present normal external inspection and other; Absent drooling Teeth exam: Present normal inspection Throat exam: Present tonsillar erythema and tonsillomegaly Neck Neck exam: Present normal inspection, full ROM and trachea midline; Absent tenderness, meningismus or lymphadenopathy Chest Chest inspection: Present normal inspection and symmetric chest wall rise; Absent tenderness Respiratory Respiratory exam: Present normal lung sounds bilaterally; Absent respiratory distress, wheezes or stridor Cardiovascular Cardiovascular exam: Present regular rate, normal rhythm and normal heart sounds; Absent tachycardia or irregular rhythm Abdominal Exam Abdominal exam: Present soft and normal bowel sounds; Absent distention, tenderness, guarding, rebound or rigidity Extremities Exam Extremities exam: Present normal inspection and normal capillary refill; Absent tenderness, joint swelling or calf tenderness Back Exam Back exam: Present normal inspection and full ROM; Absent tenderness, CVA tenderness (R) or CVA tenderness (L) Neurological Exam Neurological exam: Present alert, oriented X3, CN II-XII intact, normal gait and reflexes normal; Absent motor sensory deficit Psychiatric Psychiatric exam: Present normal affect and normal mood Skin Skin exam: Present warm, dry, intact and normal color Lymphatic Lymphatic Findings: no adenopathy Medical Decision Making Medical Records Medical records reviewed: No I reviewed the patient's medical records. Frank Inquiry Pt receiving controlled substance: No Vital Signs: 08/29/23 13:10 Temperature 98.2 F Temperature Source Oral Pulse Rate [Right Radial] 70 Respiratory Rate 18 Blood Pressure [Right Arm] 130/91 H Blood Pressure Mean [Right Arm] 104 Blood Pressure Source [Right Arm] Automatic Cuff Blood Pressure Position [Right Arm] Sitting 02 Sat by Pulse Oximetry 98 Oxygen Delivery Method Room Air
[2023-08-29 14:18] VITALS: BP 130/91; PULSE 70; RESP 18; TEMP 36.8; O2SAT 98
== END 2023-08-29 14:18 | disposition home or self-care (01) ==
PROVIDERS: Emergency Provider Nurse Practitioner Family; PCP Family Medicine
DX: H66.92 Otitis media, unspecified, left ear (principal); H92.02 Otalgia, left ear; R09.81 Nasal congestion; F17.210 Nicotine dependence, cigarettes, uncomplicated
CPT/HCPCS: 99212; 99214; G0463

== ENCOUNTER 2024-01-09 10:23 | Emergency (ER) | payer BC, SELFPAY ==
[2024-01-09 11:25] VITALS: BP 119/84; PULSE 66; RESP 20; TEMP 36.6; O2SAT 99; BMI 28.7
[2024-01-09 11:46] LABS: UTC Strep Screen (Rapid) Negative (Negative)
--- NOTE | 2024-01-09 12:09 | EXP.UTC ---
Discharge Plan Disposition Patient Disposition: Home, Self-Care Condition: Good Prescriptions Prescriptions: New amoxicillin 875 mg tablet 875 mg PO Q12H Qty: 20 0RF methylprednisolone [Medrol (Davy)] 4 mg tablets,dose pack See Rx Instructions .Route .COMPLEX 6 Days Qty: 21 0RF Rx Instructions: taper pack; fluticasone propionate [Flonase Allergy Relief] 50 mcg/actuation spray,suspension 2 spray intranasal DAILY Qty: 16 0RF Rx Instructions: administer into each nostril daily No Action cetirizine [Zyrtec] 10 mg Tablet 10 mg PO DAILY Referrals Follow up/Referrals: Florinda Jin MD [Primary Care Provider] - See instructions Activity Restrictions/Add. Instructions Additional Instructions/Restrictions: *Monitor Temp, Over the counter Motrin or Tylenol as directed/as needed Tylenol every 4 hours and Motrin every 6 hours (as long as your family doctor has told you that you can take it) for fever or pain. and straight to ER if unable to lower temp less than 101.0 after medication given *Warm salt water gargles may help to soothe the throat *Throat Lozenges? *Warm fluids like tea with honey may help to soothe the throat? *Sleep elevated *Humidifier/Vaporizer *Flonase 2 sprays in each nostril daily but be aware that it may take 2-3 days before you notice improvement Take medication as prescribed Your throat swab was sent for culture. Those results are typically sent to your primary care. Be sure to follow up in 2-3 days with your family doctor/primary care physician if no improvement so they can review those result and treat if necessary. If you don?t have a primary care doctor, I recommend you get one but in the mean time, you will have to return to a walk in clinic Follow up IMMEDIATELY for new or worsening symptoms or no Noticeable improvement over the next 48-72 hours. 911 for difficulty breathing or swallowing Clinical Impressions Clinical Impression: Otitis media Instructions Patient Instructions: Middle Ear Infection, Amoxicillin Print Language Print Language: Sinhala Discharge ED Provider: Yaneli Kaba [facility] [place] HPI General Stated complaint: ear ache and sore throat Mode of Arrival: Ambulatory Source of Information: Patient Limitations: No Limitations Time Seen by Provider: 01/09/24 12:09 Description of Symptoms (Recalled from Triage Doc. by RN): PATIENT C/O RIGHT EAR PAIN AND SORE THROAT X 3 DAYS HEENT Symptoms (Recalled from RN notes): Yes Resp Symptoms (Recalled from RN notes): No Skin Symptoms (Recalled from RN notes): No MS Symptoms (Recalled from RN notes): No Functional Status (Recalled from RN notes): WNL History of Present Illness Provider Complaint: Patient states that he started with pain and pressure in his ear last week and for the last 3 days his ear pain has got worse and having sore throat so today when he wasnt feeling any better he came in to get checked Related Data Home Medications ?Medication ?Instructions ?Recorded ?Confirmed cetirizine 10 mg tablet (Zyrtec) 10 mg PO DAILY 01/15/23 01/09/24 Previous Rx's ?Medication ?Instructions ?Recorded amoxicillin 875 mg tablet 875 mg PO Q12H #20 tabs 01/09/24 fluticasone propionate 50 2 spray intranasal DAILY #16 grams 01/09/24 mcg/actuation nasal spray,suspension (Flonase Allergy Relief) methylprednisolone 4 mg tablets in See Rx Instructions .Route 01/09/24 a dose pack (Medrol (Davy)) .COMPLEX 6 days #21 tabs Allergies Allergy/AdvReac Type Severity Reaction Status Date / Time No Known Allergies Allergy Verified 11/09/23 08:18 Worker's Comp Is this a Worker's Comp case?: No [facility] Disclaimer: The information contained in this section may have been updated after the patient was seen, as this information can be updated by other users. Medical History Kidney stone Cancer Surgical History History of mandibular surgery Social History Smoking Status: Current some day smoker tobacco type: cigarettes packs per day: 1 alcohol intake: never current occupational status: other Travel in the last 8 weeks: None ROS Obtained: Yes All systems reviewed & no additional complaints except as documented and Yes Systems reviewed as appropriate & no additional complaints except as documented Constitutional Constitutional: Reports system reviewed and no additional complaints, except as documented and Reports as per HPI ENT Ears, Nose, Mouth, and Throat: Reports system reviewed and no additional complaints, except as documented, Reports as per HPI, Reports otalgia and Reports sore throat Cardiovascular Cardiovascular: Reports system reviewed and no additional complaints, except as documented and Reports as per HPI Respiratory Respiratory: Reports system reviewed and no additional complaints, except as documented and Reports as per HPI Gastrointestinal Gastrointestingal: Reports system reviewed and no additional complaints, except as documented and as per HPI Physical Exam General General appearance: alert and in no apparent distress ENT ENT exam: Present mucous membranes moist Expanded ENT Exam TM/Canal exam: Right TM: erythema and bulging Throat exam: Present normal inspection Respiratory Respiratory exam: Present normal lung sounds bilaterally; Absent respiratory distress or wheezes Cardiovascular Cardiovascular exam: Present regular rate, normal rhythm and normal heart sounds Neurological Exam Neurological exam: Present alert, oriented X3 and normal gait Medical Decision Making Medical Records Screening: Per USPSTF and CDC recommendations, given the prevalence of disease in our region, it is our hospital?s policy to screen for HIV and viral Hepatitis for all patients aged 18 and over and those with ongoing risk factors. Frank Inquiry Pt receiving controlled substance: No Frank was queried for this patient: No Vital Signs: 01/09/24 11:25 Temperature 97.8 F Temperature Source Oral Pulse Rate [Left Brachial] 66 Respiratory Rate 20 Blood Pressure [Left Arm] 119/84 Blood Pressure Mean [Left Arm] 95 Blood Pressure Source [Left Arm] Automatic Cuff Blood Pressure Position [Left Arm] Sitting 02 Sat by Pulse Oximetry 99 Oxygen Delivery Method Room Air Lab Data Lab results reviewed: Yes I reviewed the patient's lab results. Lab Results 01/09/24 11:27: Strep Scn Rapid Clinic Negative Orders (Tests/Meds): ORDERS Category Date Time Status Strep Screen Confirmation Stat Micro 01/09/24 11:27 Received
[2024-01-09 12:18] VITALS: BP 119/84; PULSE 66; RESP 20; TEMP 36.6; O2SAT 99
== END 2024-01-09 12:21 | disposition home or self-care (01) ==
PROVIDERS: Emergency Provider Nurse Practitioner; PCP Family Medicine
DX: H66.93 Otitis media, unspecified, bilateral (principal)
CPT/HCPCS: 87880; 99213; G0381

== ENCOUNTER 2024-03-13 12:16 | Emergency (ER) | payer BC, SELFPAY ==
[2024-03-13 14:02] VITALS: BP 133/76; PULSE 81; RESP 18; TEMP 36.7; O2SAT 100; BMI 29.4
--- NOTE | 2024-03-13 14:31 | ED_ITS ---
Discharge Plan Disposition Patient Disposition: Home, Self-Care Condition: Good Prescriptions Prescriptions: New methylprednisolone 4 mg Tablets,Dose Pack 4 mg PO DIRECTED 6 Days Qty: 21 0RF Rx Instructions: Take 1 pack as directed for 6 days amoxicillin-pot clavulanate 875-125 mg Tablet 1 tab PO Q12H Qty: 20 0RF No Action cetirizine [Zyrtec] 10 mg Tablet 10 mg PO DAILY fluticasone propionate [Flonase Allergy Relief] 50 mcg/actuation spray,suspension 2 spray intranasal DAILY Qty: 16 0RF Rx Instructions: administer into each nostril daily Referrals Follow up/Referrals: Florinda Jin MD [Primary Care Provider] - See instructions Activity Restrictions/Add. Instructions Additional Instructions/Restrictions: Drink plenty of fluids. Take tylenol or ibuprofen for pain or fever. Take the medications as directed. Follow up with your regular doctor. GO TO THE ER FOR ANY WORSENING SYMPTOMS Clinical Impressions Clinical Impression: Sinusitis Otitis media Qualifiers: Otitis media type: unspecified Laterality: left Qualified Code(s): H66.92 - Otitis media, unspecified, left ear Instructions Patient Instructions: Sinusitis, DI for Sinusitis Print Language Print Language: Macedonian Discharge ED Provider: Syd Miranda [facility] [place] HPI General Stated complaint: hoover ear pain congestion Mode of Arrival: Ambulatory Source of Information: Patient Time Seen by Provider: 03/13/24 14:31 Description of Symptoms (Recalled from Triage Doc. by RN): RIGHT SIDE EAR PAIN AND SINUS PRESSURE, DRAINAGE AND VERTIGO HEENT Symptoms (Recalled from RN notes): Yes Resp Symptoms (Recalled from RN notes): No Skin Symptoms (Recalled from RN notes): No MS Symptoms (Recalled from RN notes): No Functional Status (Recalled from RN notes): WNL Related Data Home Medications ?Medication ?Instructions ?Recorded ?Confirmed cetirizine 10 mg tablet (Zyrtec) 10 mg PO DAILY 01/15/23 03/13/24 Previous Rx's ?Medication ?Instructions ?Recorded fluticasone propionate 50 2 spray intranasal DAILY #16 grams 01/09/24 mcg/actuation nasal spray,suspension (Flonase Allergy Relief) amoxicillin 875 mg-potassium 1 tab PO Q12H #20 tabs 03/13/24 clavulanate 125 mg tablet methylprednisolone 4 mg tablets in 4 mg PO DIRECTED 6 days #21 tabs 03/13/24 a dose pack Allergies Allergy/AdvReac Type Severity Reaction Status Date / Time No Known Allergies Allergy Verified 11/09/23 08:18 Worker's Comp Is this a Worker's Comp case?: No [facility] Disclaimer: The information contained in this section may have been updated after the patient was seen, as this information can be updated by other users. Medical History Kidney stone Cancer Surgical History History of mandibular surgery Social History Smoking Status: Current some day smoker tobacco type: cigarettes packs per day: 1 alcohol intake: never current occupational status: other Travel in the last 8 weeks: None Have you lived/traveled outside US in past 30 days?: No Contact w/someone who lives/traveled outside US past 30 days?: No Exposure to someone with infectious disease in past 14 days?: No Do you have a fever (greater than 100.4 F or 38 C)?: No Have you tested positive for COVID-19: No Exposed to someone with COVID-19 in past 14 days?: No Do you have a sore throat?: No Do you have a cough?: No Do you have any weakness?: No Do you have any diarrhea?: No Are you experiencing any unusual bleeding?: No Do you have any muscle aches/pain?: No Do you have any abdominal pain?: No Are you experiencing loss of taste or smell?: No ROS Obtained: Yes All systems reviewed & no additional complaints except as documented Constitutional Constitutional: Reports chills and Reports fever(s) Eyes Eyes: Denies eye discharge ENT Ears, Nose, Mouth, and Throat: Reports as per HPI Cardiovascular Cardiovascular: Denies chest pain Respiratory Respiratory: Denies chest congestion and Reports cough Gastrointestinal Gastrointestingal: Reports nausea; Denies abdominal pain, constipation, cramping, diarrhea or vomiting Musculoskeletal Musculoskeletal: Denies arthralgias Integumentary/Breasts Skin/Breast: Denies rash Neurologic Neurologic: Denies paresthesias Physical Exam General General appearance: alert and in no apparent distress Head Head exam: atraumatic, normocephalic and normal inspection Eye Eye exam: Present normal appearance; Absent PERRL or EOMI ENT ENT exam: Present mucous membranes moist and normal external ear exam Expanded ENT Exam TM/Canal exam: Bilateral TM: erythema, bulging and effusion Nose exam: Absent sinus tenderness Nasal speculum exam: Bilateral: normal Mouth exam: Present normal external inspection and other; Absent drooling Teeth exam: Present normal inspection Throat exam: Present tonsillar erythema and tonsillomegaly Neck Neck exam: Present normal inspection, full ROM and trachea midline; Absent tenderness, meningismus or lymphadenopathy Chest Chest inspection: Present normal inspection and symmetric chest wall rise; Absent tenderness Respiratory Respiratory exam: Present normal lung sounds bilaterally; Absent respiratory distress, wheezes or stridor Cardiovascular Cardiovascular exam: Present regular rate, normal rhythm and normal heart sounds; Absent tachycardia or irregular rhythm Abdominal Exam Abdominal exam: Present soft and normal bowel sounds; Absent distention, tenderness, guarding, rebound or rigidity Extremities Exam Extremities exam: Present normal inspection and normal capillary refill; Absent tenderness, joint swelling or calf tenderness Back Exam Back exam: Present normal inspection and full ROM; Absent tenderness, CVA tenderness (R) or CVA tenderness (L) Neurological Exam Neurological exam: Present alert, oriented X3, CN II-XII intact, normal gait and reflexes normal; Absent motor sensory deficit Psychiatric Psychiatric exam: Present normal affect and normal mood Skin Skin exam: Present warm, dry, intact and normal color Lymphatic Lymphatic Findings: no adenopathy Medical Decision Making Medical Records Medical records reviewed: No I reviewed the patient's medical records. Screening: Per USPSTF and CDC recommendations, given the prevalence of disease in our region, it is our hospital?s policy to screen for HIV and viral Hepatitis for all patients aged 18 and over and those with ongoing risk factors. Frank Inquiry Pt receiving controlled substance: No Vital Signs: 03/13/24 14:02 Temperature 98.1 F Temperature Source Oral Pulse Rate [Left Brachial] 81 Respiratory Rate 18 Blood Pressure [Left Arm] 133/76 Blood Pressure Mean [Left Arm] 95 02 Sat by Pulse Oximetry 100 Lab Data Lab results reviewed: Yes I reviewed the patient's lab results.
[2024-03-13 14:59] VITALS: BP 133/76; PULSE 81; RESP 18; TEMP 36.7
== END 2024-03-13 15:01 | disposition home or self-care (01) ==
PROVIDERS: Emergency Provider Nurse Practitioner Family; PCP Family Medicine
DX: H66.91 Otitis media, unspecified, right ear (principal); J32.9 Chronic sinusitis, unspecified; R50.9 Fever, unspecified; H92.01 Otalgia, right ear; R51.9 Headache, unspecified; R09.81 Nasal congestion; R42 Dizziness and giddiness
CPT/HCPCS: 99212; G0381

== ENCOUNTER 2025-01-12 17:39 | Emergency (ER) | payer BC, SELFPAY ==
[2025-01-12 17:43] VITALS: BP 131/90; PULSE 80; RESP 20; TEMP 36.8; O2SAT 97; BMI 28.5
--- NOTE | 2025-01-12 17:47 | PC.NURSE ---
Pt awake alert and oriented Skin pink warm and dry Resp full and easy Speech clear and appropriate. at bedside.
--- OUTSIDE RECORDS SUMMARY | 2025-01-12 17:48 | XMS_ITS | Clinical Summary ---
Author Organization [facility] Address [address] [place] [id number] Phone [email or web address] Care Team Providers Care Skin Care Specialist Name Role Phone Sy Crystal MD Primary Care Provider [phone] Allergies No known active allergies Medications cetirizine (ZyrTEC) 10 MG tablet Take 10 mg by mouth 1 (one) time each day. Active ibuprofen (MOTRIN) 800 MG tablet TAKE 1 TABLET BY MOUTH EVERY 8 HOURS NEEDED FOR MODERATE PAIN 09/23/2020 Active ascorbic acid (VITAMIN C) 500 MG tablet Take 500 mg by mouth once daily as needed. Active Biotin 5 MG capsule Take 5 mg by mouth once daily as needed. Active cholecalciferol (VITAMIN D-3) 25 MCG (1000 UT) tablet Take 1,000 Units by mouth once daily as needed. Active K Phos [place]-Sod Phos Di & [place] (Phospha 250 Neutral) 155-852-130 MG tablet 08/11/2021 Active Magnesium 400 MG tablet Take 400 mg by mouth once daily as needed. Active Multiple Vitamin (multivitamin) tablet Take 1 tablet by mouth once daily as needed. Active Active Problems No known active problems Immunizations Immunization Administration Dates Next Due Tdap (ADACEL BOOSTRIX) (CVX-115) 04/26/2015,04/16 Family History Medical History Relation Name Comments Cancer Mother Diabetes Mother Relation Name Status Comments Mother Social History Tobacco Use Types Packs/Day Years Used Date Smoking Tobacco: Every Day E-Cigarettes Smokeless Tobacco: Never Intimate Partner Violence Answer Date R ecorded Insults You Not on file 06/27/2020 Threatens You Not on file 06/27/2020 Screams at You Not on file 06/27/2020 Physically Hurt Not on file 06/27/2020 Intimate Partner Violence Score Not on file 06/27/2020 Depression Answer Date Recorded PHQ Total Score 0 12/28/2021 Stress Answer Date Recorded Stress in your Life Not on file 01/18/2024 Dealing with Stress 3 01/18/2024 Sex and Gender Information Value Date Recorded Sex Assigned at Not on file Legal Sex Male 9:08 AM CDT Gender Identity Not on file Sexual Orientation Not on file Last Filed Vital Signs Vital Sign Reading Time Taken Comments Blood Pressure 120/78 11/19/2023 11:55 AM EDT Pulse 86 11/19/2023 11:55 AM EDT Temperature 36.8 C (98.2 F) 11/19/2023 11:55 AM EDT Respiratory Rate 16 11/19/2023 11:55 AM EDT Oxygen Saturation 97% 01/23/2023 6:17 AM EST Inhaled Oxygen Concentration - - Weight 95.3 kg (210 lb) 09/14/2024 9:59 AM EDT Height 182.9 cm (6') 09/14/2024 9:59 AM EDT Body Mass Index 28.48 09/14/2024 9:59 AM EDT Plan of Treatment Health Maintenance Due Date Last Done Comments Dental Cleaning/Exam 1981 HIV Screening 1981 Hepatitis C Screening 1981 HPV Immunization (1 - Male 3-dose series) 1996 Annual Preventive Exam 11/23/1999 Hep B Infection Screening - Triple Screen 11/23/1999 Hepatitis B Immunization (1 of 3 - 19+ 3-dose series) 2000 Pneumococcal Immunization (1 of 2 - PCV) 2000 Covid-19 Immunization (1 - season) 2024 Influenza Immunization (#1) 2024 Tetanus Diphtheria and Pertussis Immunization (3 - Td or Tdap) 04/26/2025 04/26/2015, 04/26/2015 HIB Immunization Aged Out No longer e ligible based on patient's age to complete this topic Hepatitis A Immunization Aged Out No longer eligible based on patient's age to complete this topic Polio Immunization Aged Out No longer eligible based on patient's age to complete this topic Varicella Immunization Aged Out No lo nger eligible based on patient's age to complete this topic Insurance [employer] 5 T [id number] [place] [address] Care Teams Skin Care Specialist Relationship Specialty Start Date End Date Sy Crystal MD [address] [facility] [address] [place] [place] [id number] PCP - General Production Specialist 03/17/19
--- OUTSIDE RECORDS SUMMARY | 2025-01-12 17:48 | XMS_ITS | Clinical Summary ---
Author Organization Healthcare Address [address] [place] [address] Care Team Providers Care Supervisor Newspaper Deliveries Name Role Phone Pcp, No Primary Care Provider Unavailabl e Allergies No known active allergies Medications cetirizine (ZyrTEC) 10 MG tablet Take 10 mg by mouth 1 (one) time each day. Active ascorbic acid (Vitamin C) 500 MG tablet Take 500 mg by mouth 1 (one) time each day. Active cholecalciferol (Vitamin D-3) 25 MCG (1000 UT) tablet Take 1,000 Units by mouth 1 (one) time each day. Active Multiple Vitamin (multivitamin) tablet Take 1 tablet by mouth 1 (one) time each day. Active biotin 5 MG capsule Take 5 mg by mouth 1 (one) time each day. Active magnesium oxide (Mag-Ox) 400 mg tablet Take 400 mg by mouth 1 (one) time each day. Active potassium chloride CR (Klor-Con) 10 MEQ ER tablet Take 10 mEq by mouth 1 (one) time each day. Do not crush, chew, or split. 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 (06/23/2021): Added automatically from request for surgery [id number] Family History Medical History Relation Name Comments Cancer Father prostate Cancer Mother breast Diabetes Mother Relation Name Status Comments Father Mother Social History Tobacco Use Types Packs/Day Years Used Date Smoking Tobacco: Every Day Cigarettes Smokeless Tobacco: Never Comments:1 pack in 3 days Alcohol Use Standard Drinks/Week Comments Yes 0 (1 standard drink = 0.6 oz pure alcohol) once amonth or special occassions Sex and Gender Information Value Date Recorded Sex Assigned at Male 08/07/2021 6:16 AM EDT Legal Sex Male 8:16 PM EDT Gender Identity Male 08/07/2021 6:16 AM EDT Sexual Orientation Straight 08/07/2021 6: 16 AM EDT Last Filed Vital Signs Vital Sign Reading Time Taken Comments Blood Pressure 136/90 09/17/2022 2:14 PM EDT Pulse 75 09/17/2022 2:14 PM EDT Temperature 36.6 C (97.9 F) 08/22/2021 3:33 PM EDT Respiratory Rate 18 08/11/2021 4:05 AM EDT Oxygen Saturation 98% 08/22/2021 3:33 PM EDT Inhaled Oxygen Concentration - - Weight 90.7 kg (200 lb) 08/22/2021 3:33 PM EDT Height 180.3 cm (5' 11 ) 08/22/2021 3:33 PM EDT Body Mass Index 27.89 08/22/2021 3:33 PM EDT Plan of Treatment Health Maintenance Due Date Last Done Comments Dental X-Ray: Bitewings 1981 [facility]-Depression Screening 1981 [facility]-HIV Screening 1981 [facility]-Hepatitis C Screening 1981 [facility]-/Child/Adol SDOH Screenings 1981 [id number] Vaccine (#1) 1986 Dental Oral Exam 01/03/1994 07/03/1993 Dental Prophylaxis 01/03/1994 07/03/1993 [facility]-Varicella Vaccines (1 of 2 - 13+ 2-dose series) 1994 [facility]- SDOH Screenings 11/23/1999 [facility]-Adult SDOH Screenings 11/23/1999 [facility]-Hepatitis B Vaccines (1 of 3 - 19+ 3-dose series) 2000 Dental X-Ray: Full Mouth 01/28/2006 003, 07/03/1993 HPV Vaccines (1 - 3-dose SCDM series) 2008 [facility]-Influenza Vaccine (#1) 2024 [facility]-DTaP,Tdap,and Td Vaccines (2 - Td or Tdap) 04/26/2025 04/26/2015 [facility]-Zoster Vaccines (1 of 2) 11/23/2031 [facility]-HIB Vaccines Aged Out No longer e ligible based on patient's age to complete this topic [facility]-Hepatitis A Vaccines Aged Out No longer eligible based on patient's age to complete this topic [facility]-IPV Vaccines Aged Out No longer e ligible based on patient's age to complete this topic [facility]-Pneumococcal Vaccine: Pediatrics (0 to 5 Years) and At-Risk Patients (6 to 49 Years) Aged Out No longer eligible b ased on patient's age to complete this topic [facility]-Rotavirus Vaccines Aged Out No lo nger eligible based on patient's age to complete this topic Medical Devices Implanted Type Area District Manager Postal Service Device Identifier Shelf Expiration Date Model / Serial / Lot Screw 2.4mm Matrixmandible St 14mm - S. - [id number] Implanted:Qty: 1 on 08/07/2021 by Adrian Be DMD at [facility] [employer] [facility]-[id number] 08/07/2022 [id number] .01 / . / Screw 2.0mm [address] 8mm - S. - [id number] Implanted:Qty: 3 on 08/07/2021 by Adrian Be DMD at [facility] [employer] [facility]-[id number] 08/07/2022 [id number] .01 / . / Screw 2.0mm [address] 6mm - S. - [id number] Implanted:Qty: 2 on 08/07/2021 by Adrian Be DMD at [facility] [employer] [facility]-[id number] 08/07/2022 [id number] .01 / . / Screw 2.0mm [address] 14mm - S. - [id number] Implanted:Qty: 2 on 08/07/2021 by Adrian Be DMD at [facility] [employer] [facility]-[id number] 08/07/2022 [id number] .01 / . / Screw 2.0mm [address] 12mm - S. - [id number] Implanted:Qty: 2 on 08/07/2021 by Adrian Be DMD at [facility] [employer] [place]-[id number] 08/07/2022 [id number] .01 / . / Screw 2.0mm [address] 16mm - S. - [id number] Implanted:Qty: 1 on 08/07/2021 by Adrian Be DMD at [facility] Screw [employer]ynthes [facility]-08/07/2022 [id number] .01 / . / Implant Trumatch Ti 3d Mandible Medium - [id number] Implanted:Qty: 1 on 08/07/2021 by Adrian Be DMD at [facility] [employer] [facility]-08/07/2022 [id number] / / Connector Nerve Axoguard 15mm 4mm - [id number] Implanted:Qty: 1 on 08/07/2021 by Adrian Be DMD at [facility] [employer]-[id number] 09/16/2022 [id number] / / [id number] Graft Vivigen 1cc - [id number] - [id number] Implanted:Qty: 1 on 08/07/2021 by Adrian Be DMD at [facility]-[id number] 07/23/2022 BL-1500-00 [id number] / [id number] Graft Vivigen [facility] - [id number] - [id number] Implanted:Qty: 1 on 08/07/2021 by Adrian Be DMD at [facility]-[id number] 08/02/2022 BL-1500-00 [id number] Procedures Procedure Name Priority Date/Time Associated Diagnosis Comments PANORAMIC RADIOGRAPHIC IMAGE Routine 01/27/2003 12:00 AM EST PROPHYLAXIS - CHILD Routine 07/03/1993 1 2:00 AM EDT COMPREHENSIVE ORAL EVALUATION - NEW OR ESTABLISHED PATIENT Routine 07/03/1993 12:00 AM EDT from Last 3 Months or Most Recently Relevant to Health Maintenance Insurance ANTH Advance Directives * Full Code (Latest Code Status on File) Date Activated Date Inactivated Comments 08/07/2021 6:01 PM 08/11/2021 12:37 PM Question Answer Comments Patient has decision-making capacity? Yes Care Teams Supervisor Newspaper Deliveries Relationship Specialty Start Date End Date Pcp, No [address] [place] [address] PCP - General Family Medicine 06/03/21
--- OUTSIDE RECORDS SUMMARY | 2025-01-12 17:48 | XMS_ITS | Clinical Summary ---
Author Organization [facility] Address [address] [place] [id number] Care Team Providers Care Supervisor Sterile Processing Name Role Phone Unavailable Primary Care Provider Unavailabl e Social History Tobacco Use Types Packs/Day Years Used Date Smoking Tobacco: Never Assessed Abuse Screen Answer Date Recorded Unsafe at Home or Work/School Not on file Feels Threatened by Someone? Not on file 12/2022 Does Anyone Keep You from Co ntacting Others or Doint Things Outside the Home? Not on file 12/23/2022 Physical Sign of Abuse Present Not on file 1 Housing Stability Answer Date Recorded Current Living Arrangements Not on file 12/14 Potentially Unsafe Housing Conditions Not on wander e 12/23/2022 Family and Community Support Answer Rachid e Recorded Help with Day-to-Day Activities Not on file 12/23/2022 Lonely or Isolated Not on file 12/23/2022 Employment Answer Date Recorded Do you want help finding or keeping work or a ijeoma b? Not on file 12/23/2022 Disabilities Answer Date Recorded Concentrating, Remembering, or Making Decisions Difficulty Not on file 12/23/2022 Doing Errands Independently Difficulty Not on fi le 12/23/2022 Education Answer Date Recorded Help with school or training? Not on file Preferred Language Not on file 12/23/2022 Sex and Gender Information Value Date Recorded Sex Assigned at Not on file Legal Sex Male 1:41 PM EDT Gender Identity Not on file Sexual Orientation Not on file Plan of Treatment Health Maintenance Due Date Last Done Comments ANNUAL PHYSICAL 1981 HEPATITIS C SCREENING 1981 TDAP/TD VACCINES (1 - Tdap) 2000 INFLUENZA VACCINE 10/14/2024 Pneumococcal Vaccine 0-49 Aged Out No longer eligible based on patient's age to complete this topic
--- NOTE | 2025-01-12 17:52 | PC.NURSE ---
urine collected and sent to lab
--- NOTE | 2025-01-12 18:18 | CT_ITS ---
PROCEDURE INFORMATION: Exam: CT Abdomen And Pelvis Without Contrast Exam date and time: 01/12/2025 6:44 PM Age: 44 years old Clinical indication: Other: Eval for kidney stones TECHNIQUE: Imaging protocol: Computed tomography of the abdomen and pelvis without contrast. Radiation optimization: All CT scans at this facility use at least one of these dose optimization techniques: automated exposure control; mA and/or kV adjustment per patient size (includes targeted exams where dose is matched to clinical indication); or iterative reconstruction. COMPARISON: CR XR CHEST PORTABLE 11/19/2020 4:33 PM FINDINGS: Liver: Normal. No mass. Gallbladder and biliary ducts: Normal. No calcified stones. No ductal dilation. Pancreas: Normal. No ductal dilation. Spleen: Normal. No splenomegaly. Adrenal glands: Normal. No mass. Kidneys and ureters: Multiple Bosniak 1 renal cystic lesions defined as homogeneous and fluid density (-9 to 20 HU), no septations or calcifications, having west smooth and thin. Largest cyst measures 4.5 cm. No follow-up recommended. Nonobstructive bilateral nephrolithiasis define by multiple bilateral renal calcific densities the largest measuring up to 4 mm bilaterally. No hydronephrosis. Stomach and bowel: Unremarkable. No obstruction. No mucosal thickening. Appendix: No evidence of appendicitis. Intraperitoneal space: Unremarkable. No free air. No significant fluid collection. Vasculature: Unremarkable. No abdominal aortic aneurysm. Lymph nodes: Unremarkable. No enlarged lymph nodes. Urinary bladder: Unremarkable as visualized. Reproductive: Unremarkable as visualized. Bones/joints: Unremarkable. No acute fracture. Soft tissues: Normal. IMPRESSION: Nonobstructive bilateral nephrolithiasis define by multiple bilateral renal calcific densities the largest measuring up to 4 mm bilaterally. No hydronephrosis or hydroureter. COMMENTS: Consistent with the [employer]'s Incidental Findings Committee white paper (J Am Pennie Radiol 2018): Any incidental renal lesion less than 1 cm or classified as too small to characterize, or any incidental cystic renal lesion characterized as simple-appearing, is likely benign. No follow-up imaging is recommended for these lesions per consensus recommendations based on imaging criteria.
--- NOTE | 2025-01-12 18:19 | ED_ITS ---
Discharge Plan Disposition Patient Disposition: Home, Self-Care Condition: Good Prescriptions Prescriptions: New phenazopyridine [Pyridium] 200 mg tablet 200 mg PO Q8H Qty: 20 0RF tamsulosin [Flomax] 0.4 mg capsule 0.4 mg PO DAILY Qty: 20 0RF No Action cetirizine [Zyrtec] 10 mg Tablet 10 mg PO DAILY fluticasone propionate [Flonase Allergy Relief] 50 mcg/actuation spray,suspension 2 spray intranasal DAILY Qty: 16 0RF Rx Instructions: administer into each nostril daily Referrals Follow up/Referrals: Florinda Jin MD [Primary Care Provider, Medical] - See instructions Activity Restrictions/Add. Instructions Additional Instructions/Restrictions: Continue taking the Pyridium as needed for urinary frequency. Your urine does not show any evidence of infection. Your kidney stone should pass on their own. We have sent you with Flomax which should help in addition. You can take Tylenol and ibuprofen as needed. I will send you with Flomax as well to help with your symptoms. Return to the emergency department for any acute or worsening symptoms. Return to the emergency department if you are unable to urinate or if you have any other acute concerns. Clinical Impressions Clinical Impression: Urinary frequency Stand Alone Forms Stand Alone Forms: Work/School Release Print Language Print Language: Dutch Discharge ED Provider: Bozena Jolly Adult HPI General Chief complaint: PAIN Stated complaint: Hard time urinating/back pain Time Seen by Provider: 01/12/25 17:55 Mode of Arrival: Ambulatory Source of Information: Patient Description of Symptoms (Recalled from ER Triage Doc. by RN): Pt states he is having frequent urination and small amounts when he does urinate HX of kidney stones History of Present Illness HPI narrative: Patient is a 44-year-old male with a past medical history of kidney stones who presents to the emergency department with urinary frequency and urgency. Patient states that he had the similar symptoms a week ago took some Azo and symptoms resolved but then his symptoms returned over the last couple days. Patient states that he is having to pee so frequently he is losing concentration at work. Patient has some mild pain in his right back but does not radiate. Patient denies any fevers. Patient states that he feels like he is unable to empty his bladder. Patient denies any fevers or chills. Patient denies any diarrhea. Patient denies any prior abdominal surgeries except for 1 previous ureteral stent from a previous kidney stone. Patient denies any vomiting. Patient denies any nausea. Related Data Home Medications ?Medication ?Instructions ?Recorded ?Confirmed cetirizine 10 mg tablet (Zyrtec) 10 mg PO DAILY 09/26/24 Previous Rx's ?Medication ?Instructions ?Recorded fluticasone propionate 50 2 spray intranasal DAILY #16 grams 01/09/24 mcg/actuation nasal spray,suspension (Flonase Allergy Relief) phenazopyridine 200 mg tablet 200 mg PO Q8H 6 doses #2 0 tabs 01/12/25 (Pyridium) tamsulosin 0.4 mg capsule (Flomax) 0.4 mg PO DAILY #20 caps 01/12/25 Allergies Allergy/AdvReac Type Severity Reaction Status Date / Time No Known Allergies Allergy Verified 09/26/24 09:09 [facility] Disclaimer: The information contained in this section may have been updated after the patient was seen, as this information can be updated by other users. Medical History Kidney stone Cancer Surgical History History of mandibular surgery Social History Smoking Status: Current every day smoker tobacco type: cigarettes packs per day: 1 alcohol intake: never current occupational status: other Travel in the last 8 weeks?: None Have you lived/traveled outside US in past 30 days?: No Contact w/someone who lives/traveled outside US past 30 days?: No Exposure to someone with infectious disease in past 14 days?: No Do you have a fever (greater than 100.4 F or 38 C)?: No Have you tested positive for COVID-19?: No Exposed to someone with COVID-19 in past 14 days?: No Do you have a sore throat?: No Do you have a cough?: No Do you have any weakness?: No Do you have any diarrhea?: No Are you experiencing any unusual bleeding?: No Do you have any muscle aches/pain?: No Do you have any abdominal pain?: No Are you experiencing loss of taste or smell?: No Other Medical History Have you received the Flu Vaccine for this season: No Have you received the Pneumonia Vaccine: No ROS Obtained: Yes All systems reviewed & no additional complaints except as documented and Yes Systems reviewed as appropriate & no additional complaints except as documented Physical Exam General General appearance: alert and in no apparent distress Head Head exam: atraumatic, normocephalic and normal inspection Eye Eye exam: Present normal appearance, PERRL and EOMI; Absent scleral icterus ENT ENT exam: Present normal exam and normal external ear exam Neck Neck exam: Present normal inspection and full ROM Chest Chest inspection: Present normal inspection and symmetric chest wall rise Respiratory Respiratory exam: Present normal lung sounds bilaterally; Absent respiratory distress or wheezes Cardiovascular Cardiovascular exam: Present regular rate, normal rhythm and normal heart sounds Abdominal Exam Abdominal exam: Present soft and distention; Absent tenderness, guarding or rebound Extremities Exam Extremities exam: Present normal inspection and full ROM Back Exam Back exam: Present normal inspection, full ROM and other (R CVA tenderness) Neurological Exam Neurological exam: Present alert and oriented X3 Psychiatric Psychiatric exam: Present normal affect and normal mood Skin Skin exam: Present warm and dry Medical Decision Making Medical Records Medical records reviewed: Yes I reviewed the patient's medical records. Screening: Per USPSTF and CDC recommendations, given the prevalence of disease in our region, it is our hospital?s policy to screen for HIV and viral Hepatitis for all patients aged 18 and over and those with ongoing risk factors. Frank Inquiry Pt receiving controlled substance: No Vital Signs: 01/12/25 17:43 01/12/25 20:50 Temperature 98.3 F 98.2 F Temperature Source Oral Oral Pulse Rate 82 Pulse Rate [Left Radial] 80 Respiratory Rate 20 20 Blood Pressure 150/80 H Blood Pressure [Right Arm] 131/90 Blood Pressure Mean [Right Arm] 103 Blood Pressure Source Automatic Cuff Blood Pressure Source [Right Arm] Automatic Cuff Blood Pressure Position Sitting Blood Pressure Position [Right Arm] Sitting 02 Sat by Pulse Oximetry 97 Oxygen Delivery Method Room Air Room Air Lab Data Lab results reviewed: Yes I reviewed the patient's lab results. Lab Results 01/12/25 11:45: Urine Color Yellow, Urine Appearance Clear, Urine pH 7.5, Ur Specific [place] 1.015, Urine Protein Negative, Urine Glucose (UA) Negative, Urine Ketones Negative, Urine Blood Negative, Urine Nitrate Negative, Urine Bilirubin Negative, Urine Urobilinogen 0.2, Ur Leukocyte Esterase Negative, Urine RBC None, Urine WBC Occasional, Ur Squamous Epith Cells None, Amorphous Sediment 2+, Urine Bacteria None, Ur C. trach DNA (PCR) Negative, U N.gonorrhoeae DNA PCR Negative, T. vaginalis (PCR) Negative 01/12/25 18:57: WBC 6.0, RBC 4.62, Hgb 13.6 L, Hct 40.1 L, MCV 86.8, MCH 29.4, MCHC 33.9, RDW 12.5, Plt Count 210, MPV 9.1, Neut % (Auto) 59.1, Lymph % (Auto) 30.8, Mckinley % (Auto) 7.4, Eos % (Auto) 2.2, Baso % (Auto) 0.3, Neut # (Auto) 3.5, Lymph # (Auto) 1.8, Mckinley # (Auto) 0.4, Eos # (Auto) 0.1, Baso # (Auto) 0.0, Sodium 137, Potassium 4.0, Chloride 102, Carbon Dioxide 32 H, Anion Gap 7.0, BUN 22 H, Creatinine 1.00, Estimated Creat Clear 128, Estimated GFR 82, Est GFR ( Amer) 99, Glucose 94, Calcium 9.5, Total Bilirubin 0.5, AST 32, ALT 26, Alkaline Phosphatase 60, Total Protein 7.6, Albumin 3.6, Globulin 4.0 H, A lbumin/Globulin Ratio 0.9 L, HCV Ab ANDREIA w/Rflx PCR Qn Negative, HIV Ag/Ab Combo Qual Negative 01/12/25 18:57 01/12/25 18:57 Orders (Tests/Meds): ED MEDICATIONS Discontinued Medications Generic Name Dose Route Start Last Admin Trade Name Freq PRN Reason Stop Dose Admin Ketorolac Tromethamine 30 mg 01/12/25 18:18 01/12/25 18:55 Ketorolac 30mg/Ml Vial IV 01/12/25 18:19 30 mg ONCE ONE Administration Phenazopyridine HCl 200 mg 01/12/25 20:24 01/12/25 20:34 Phenazopyridine 200mg Tablet PO 01/12/25 20:25 200 mg ONCE ONE Administration ORDERS Category Date Time Status CT abdomen pelvis wo con Stat Cat Scan 01/12/25 18:18 Completed CBC w/Auto Diff [Complete Blood Count Auto Diff] Stat Lab 01/12/25 18:57 Completed CMP [Comprehensive Metabolic Panel] Stat Lab 01/12/25 18:57 Completed HIV Combo Routine Lab 01/12/25 18:57 Completed Hepatitis C Ab Qual. W/ RFX Routine Lab 01/12/25 18:57 Completed UA [Urinalysis and Microscopic] Stat Lab 01/12/25 11:45 Completed Urine Chlam/Gono/Trich ([facility]) Stat Lab 01/12/25 11:45 Completed Urine Culture Stat Micro 01/12/25 11:45 Received Medical Decision Narrative: Patient is a 44-year-old male with a past medical history of kidney stones who presents to the emergency department with urinary frequency urgency and the sensation that he is unable to empty his bladder. On arrival, patient is hemodynamically stable with unremarkable vital signs. Differential includes but not limited to: Urinary tract infection, sexually- transmitted infection, nephrolithiasis, electrolyte abnormalities, amongst others. Patient's labs were reviewed and interpreted by myself: CBC showed no leukocytosis, hemoglobin was stable. CMP was unremarkable. UA showed no evidence of infection. Urine GC chlamydia trichomoniasis was negative. CT scan was reviewed interpreted by myself and showed bilateral nonobstructive nephrolithiasis 4 mm in nature. Here in the emergency department, patient's pain was well-controlled. He was only given 1 dose of Toradol. Patient did continue to have urinary frequency however patient does not have a urinary tract infection. Patient was given Pyridium and Flomax. Return precautions were discussed and at this time patient was discharged home. I disacussed with the patient that if his urine culture grew back bacteria and required antibiotics we would call him. Critical Care Critical Care Time Critical Care Time: No
[2025-01-12 18:23] LABS: Bilirubin,Urine Negative (Negative); Color,Urine YELLOW (Yellow); Glucose,Urine (UA) Negative (Negative); Ketones,Urine Negative (Negative); Leukocyte Esterase,Urine Negative (Negative); Microscopic, Urine URINE MICROSCOPIC (MICROSCOPIC); PH,Urine 7.5 (5.0-8.5); Protein,Urine Negative (Negative); Specific Gravity, Urine 1.015 (1.005-1.030); Urobilinogen,Urine 0.2 EU/dl (0.2)
[2025-01-12 18:41] LABS: Amorphous Sediment,Urine 2+ /lpf; WBC,Urine Occasional #/hpf (0-3)
--- NOTE | 2025-01-12 18:48 | PC.NURSE ---
Pt ambulatory to CT scan
[2025-01-12] MEDS: KETOROLAC 30MG/ML VIAL 30 MG IV (18:55)
[2025-01-12 19:13] LABS: Hematocrit 40.1 % (42.0-52.0); Hemoglobin 13.6 g/dL (14.1-18.0); Immature Granulocytes % 0.2 %; Mean Corpuscular HGB Conc 33.9 g/dL (31.8-35.4); Mean Corpuscular Hemoglobin 29.4 pg (27.0-31.2); Mean Corpuscular Volume 86.8 fl (80-94); Nucleated Red Blood Cells % 0 %; Platelet Count 210 K/mm3 (142-424); Red Blood Count 4.62 M/mm3 (4.60-6.20); Red Cell Distribution Width-SD 39.8 fL; White Blood Count 6.0 K/mm3 (4.8-10.8)
[2025-01-12 19:18] LABS: Chloride 102 mmol/L (98-107); Sodium 137 mmol/L (136-145)
[2025-01-12 19:19] LABS: Potassium 4.0 mmoL/L (3.5-5.1)
[2025-01-12 19:21] LABS: Alanine Aminotransferase 26 U/L (12-78); Alkaline Phosphatase 60 U/L (38-126); Anion Gap 7.0 mEq/L (5-15); Aspartate Amino Transferase 32 U/L (17-59); Bilirubin,Total 0.5 mg/dl (0.2-1.3); Carbon Dioxide 32 mmol/L (22.0-30.0)
[2025-01-12 19:22] LABS: Calcium 9.5 mg/dl (8.4-10.2); Glucose 94 mg/dl (74-100); Total Protein,Serum 7.6 g/dl (6.3-8.2)
[2025-01-12 19:43] LABS: Blood Urea Nitrogen 22 mg/dl (9-20); Creatinine Clearance Estimated 128 mL/min (50-200); Creatinine,Serum 1.00 mg/dl (0.66-1.25); Estimated Glomerular Filt Rate 82 ml/min (>60); GFR (African American) 99 ML/MIN (>60)
[2025-01-12 20:08] LABS: Albumin Level 3.6 g/dl (3.5-5.0); Albumin/Globulin Ratio 0.9 (1.1-1.8); Globulin 4.0 g/dL (1.3-3.2)
[2025-01-12 20:10] LABS: Hepatitis C Ab Qual. W/ RFX NEGATIVE (Negative)
[2025-01-12] MEDS: PHENAZOPYRIDINE 200MG TABLET 200 MG PO (20:34)
[2025-01-12 20:50] VITALS: BP 150/80; PULSE 82; RESP 20; TEMP 36.8; O2SAT 98
== END 2025-01-12 20:51 | disposition home or self-care (01) ==
PROVIDERS: Emergency Provider Student in an Organized Health Care Education/Training Program; PCP Family Medicine
DX: R35.0 Frequency of micturition (principal); R39.15 Urgency of urination; M54.59 Other low back pain; Z87.442 Personal history of urinary calculi
CPT/HCPCS: 74176; 80053; 81001; 85025; 86803; 87086; 87389; 87491; 87591; 87661; 96374; 99283; 99284; J1885

== ENCOUNTER 2025-01-30 14:53 | Outpatient (CLI) | payer BC, SELFPAY ==
[2025-01-30 14:47] LABS: Microscopic, Urine URINE MICROSCOPIC (MICROSCOPIC)
[2025-01-30 19:20] LABS: Bilirubin,Urine Negative (Negative); Color,Urine YELLOW (Yellow); Glucose,Urine (UA) Negative (Negative); Ketones,Urine Negative (Negative); Leukocyte Esterase,Urine Negative (Negative); PH,Urine 6.0 (5.0-8.5); Protein,Urine Negative (Negative); Specific Gravity, Urine 1.015 (1.005-1.030); Urobilinogen,Urine 0.2 EU/dl (0.2)
--- OUTSIDE RECORDS SUMMARY | 2025-01-30 22:35 | XMS_ITS | Clinical Summary ---
Author Organization [facility] Address [address] [place] [address] Care Team Providers Care Jigger Crown Pouncing Machine Operator Name Role Phone Unavailable Primary Care Provider [...]
== END 2025-01-30 23:59 | disposition home or self-care (01) ==
LOC: LAB.DROPOF 14:53
PROVIDERS: PCP Family Medicine; Visit Provider Urology
DX: N20.0 Calculus of kidney (principal)
CPT/HCPCS: 81001